=== PATIENT | female | born 1935 | race Caucasian/White ===

== ENCOUNTER → 2016-12-10 | Outpatient (CLI) | payer OTHER, MEDICARE ==
[~2016-12-10] MED LIST: CALCTAB5 PO; CHOL200010 PO; CLR10 PO; METO25TA3 PO; MULT-190 PO; TRIA1SPR4 NAE; WARF5TAB90 PO
[2016-12-10 10:07] LABS: BASO % 0.7 %; BASO ABS # 0.05 K/uL (0-0.2); COMPLETE YES; EOS % 1.7 %; HEMATOCRIT 44.4 % (37-47); IG% 0.1 %; LYMPH % 23.7 %; LYMPH ABS # 1.64 K/uL (1.2-3.4); MEAN CELL VOLUME 95.7 fL (80-100); MEAN CORPUSCULAR HEMOGLOBIN 30.6 pg (25-34); MEAN PLATELET VOLUME 9.8 fL (7.4-10.4); MONO % 10.9 %; NEUT % 62.9 %; PLATELET COUNT 280 K/uL (130-400); RED BLOOD COUNT 4.64 M/uL (4.2-5.4); WHITE BLOOD COUNT 6.91 K/uL (4.8-10.8)
[2016-12-10 10:25] LABS: ALT/SGPT 25 U/L (12-78); AST/SGOT 22 U/L (15-37); BLOOD UREA NITROGEN 16 mg/dl (7-18); BUN/CREATININE RATIO 20.4 (10-20); CALCIUM 9.8 mg/dl (8.5-10.1); CARBON DIOXIDE 29 mmol/L (21-32); CHLORIDE 108 mmol/L (98-107); CREATININE 0.78 mg/dl (0.60-1.20); GLUCOSE 81 mg/dl (70-99); POTASSIUM 4.5 mmol/L (3.5-5.1); SODIUM 140 mmol/L (136-145)
[2016-12-10 10:36] LABS: ALB/GLOB RATIO 0.9 (0.9-2); ALKALINE PHOSPHATASE 75 U/L (45-117); CHOLESTEROL 190 mg/dl (0-200); CHOLESTEROL/HDL RATIO 2.9; HDL CHOLESTEROL 66 mg/dl; LDL CHOLESTEROL CALCULATED 103 mg/dl; TRIGLYCERIDES 103 mg/dl (0-150); VERY LOW DENSITY LIPOPROT CALC 21 mg/dl
== END | disposition home or self-care (01) ==
LOC: C.LAB 09:35
PROVIDERS: ATTEND Internal Medicine Geriatric Medicine
DX: M81.0 Age-related osteoporosis without current pathological fracture (principal); I67.2 Cerebral atherosclerosis; Z79.01 Long term (current) use of anticoagulants; I48.0 Paroxysmal atrial fibrillation

== ENCOUNTER 2017-02-26 20:57 | Emergency (ER) | payer OTHER, MEDICARE ==
[~2017-02-26] VITALS: Ht 177.8 cm; Wt 86.2 kg
[2017-02-26 21:00] VITALS: BP 159/97; PULSE 78; TEMP 36.6; O2SAT 95; Ht 177.8 cm; Wt 86.2 kg
--- NOTE | 2017-02-26 22:01 | EMERGENCY ROOM VISIT NOTE ---
ED Visit Note First contact with patient: 21:16 I have seen and examined this patient with Jalyn Bernard and generally agree with the treatment plan as discussed. Problem List Medical Problems: (1) Atrial fibrillation with RVR Status: Resolved (2) Localized, primary osteoarthritis of the lower leg Status: Chronic Current/Historical Medications Scheduled Calcium (Caltrate), 500 MG PO DAILY Cholecalciferol (Vitamin D), 2,000 UNITS PO DAILY Metoprolol Succ (Toprol Xl) (Toprol-Xl), 25 MG PO DAILY Ocuvite Preservision (Ocuvite Preservision), 2 TAB PO DAILY Warfarin Sodium (Coumadin), 5 MG PO 5XWK Warfarin Sodium (Coumadin), 2.5 MG PO 2XWK Scheduled PRN Loratadine (Claritin), 10 MG PO DAILY PRN for seasonal allergies Triamcinolone Acetonide (Nasal (Nasacort Allergy 24Hr), 2 SPRAY ADRIANA DAILY PRN for Nasal Congestion Allergies Coded Allergies: Bacitracin (Verified Allergy, Unknown, RASH, 09/11/15) Neomycin (Verified Allergy, Unknown, RASH, 09/11/15) Polymyxin B (Verified Allergy, Unknown, RASH, 09/11/15) Vital Signs Date Time Temp Pulse Resp B/P (MAP) Pulse Ox O2 Delivery O2 Flow Rate FiO2 02/26/17 21:00 36.6 78 20 159/97 95 Room Air Departure Information Referrals John Paul Roberson M.D. (PCP) Patient Instructions My [facility]
--- NOTE | 2017-02-26 22:13 | EMERGENCY ROOM VISIT NOTE ---
ED Visit Note First contact with patient: 21:16 CHIEF COMPLAINT: right hip and right foot pain s/p fall HISTORY OF PRESENT ILLNESS: This 81-year-old female patient presents to the emergency department, ambulatory, with a friend, complaining of swelling and pain in the right foot and hip at rest and worse with weight bearing. The patient eats she was at a [employer] and was walking from the kitchen to the living room. The patient states she was on aware that there was a step down into the living room. She states she missed the step and fell on her right side. The patient now reports soreness in her right hip, but is complaining of more severe pain in her right lateral foot. The patient did have a recent fracture in September on the medial aspect of her foot. The patient does have a walking boot. She states the symptoms are actually better with standing, and she is able to ambulate. The patient does have full range of motion of the foot and hip, but states movement does make it worse. The patient rates the pain as throbbing and 6/10. The patient has not had relief of the pain. No numbness or weakness. No ankle pain. There are no lacerations of the foot. The patient is able to move all of their toes and their ankle, but moving the toes does cause pain in the 4th and 5th digits. REVIEW OF SYSTEMS: A 6 system review of systems was completed with positives and pertinent negatives in the HPI. ALLERGIES: Bacitracin MEDICATIONS: Metoprolol, vitamin D, Coumadin, Nasacort, calcium, Ocuvite, flecainide PMH: Irregular heartbeat, vitamin D deficiency, calcium deficiency SOCIAL HISTORY: The patient lives locally with family. She denies drug or tobacco use. The patient does admit to occasional alcohol use. PHYSICAL EXAM: Vital Signs: Reviewed Nurse's notes, vital signs stable. GENERAL : This is a 81-year-old female, in no acute distress, but appears in pain, well- developed, well-nourished. MUSCULOSKELATAL: There is no visual deformity of the right foot. There is no erythema or ecchymosis. There is no warmth. There is tenderness and swelling over the dorsal, lateral aspect of the right foot. There is no tenderness over the lateral or medial malleolus. No tenderness of the tib/fib. The range of motion of the right foot and toes is very mildly limited secondary to pain. There is no tenderness over the plantar fascia. The patient does have moderate tenderness on palpation of the right hip. There is no bruising or ecchymosis noted. There is no erythema. The patient does have full range of motion at the hip, however this does worsen her pain. The patient 's tenderness is worsened with weightbearing. The skin is intact and there are no lacerations or puncture wounds. Dorsalis pedis pulse 2+. Capillary refill less than 2 seconds. RADIOLOGY: X-Ray Right Hip: RIGHT HIP 2 VIEWS HISTORY: right hip pain s/p fall COMPARISON: None. FINDINGS: There is no fracture or dislocation. Soft tissues are unremarkable. No radiopaque foreign bodies. IMPRESSION: No fractures. X-Ray Right Foot: RIGHT FOOT 3 VIEWS HISTORY: right lateral foot pain s/p fall COMPARISON: None. FINDINGS: There is no fracture or dislocation. Soft tissues are unremarkable. No radiopaque foreign bodies. Small plantar and posterior calcaneal spurs. The Lisfranc joint is intact. IMPRESSION: No fractures. EMERGENCY DEPARTMENT COURSE: I examined the patient. An X-ray of the right foot and right hip were reviewed by myself, Dr. Logan, and radiologist and reveals no acute fracture. The patient was advised to use her walking boot and crutches which she has at home. The patient was seen and evaluated independently with Dr. Logan who is in agreement with the assessment and plan. The patient was encouraged to follow-up with Dr. Merino due to her injuries and recent fracture. The patient was discharged home in good condition. Blood Pressure Screening: Patient was found to have a slightly elevated blood pressure due to circumstances. I do not believe that the patient requires hypertension monitoring. I attest that I have personally reviewed the patient's current medication list. DIFFERENTIAL DIAGNOSIS: Contusions, foot fracture, hip fracture, hip dislocation , and others DIAGNOSIS: right foot contusion, right hip contusion. TREATMENT: ORTHOPEDIC INSTRUCTIONS: Acetaminophen(Tylenol) may be used for fever or pain. Use 1000mg every six hours as needed. Avoid using more than 3000mg in a 24 hour period. Ice compresses for 20 minutes at a time four times daily for 2-3 days. Use the crutches or walker you have at home as instructed to help with weight- bearing until it is comfortable. Rest and elevate your injury. Wear your walking boot to help with ambulation until you see Dr. Merino. Return to the ER immediately for any numbness, tingling, severe pain, extreme swelling in the extremity or as needed. Call [facility], [phone], on Tuesday to arrange follow up for your injury. Follow-up with your primary care physician in 2 to 3 days for a recheck of your current condition. Problem List Medical Problems: (1) Atrial fibrillation with RVR Status: Resolved (2) Localized, primary osteoarthritis of the lower leg Status: Chronic Current/Historical Medications Scheduled Calcium (Caltrate), 500 MG PO DAILY Cholecalciferol (Vitamin D), 2,000 UNITS PO DAILY Metoprolol Succ (Toprol Xl) (Toprol-Xl), 25 MG PO DAILY Ocuvite Preservision (Ocuvite Preservision), 2 TAB PO DAILY Warfarin Sodium (Coumadin), 5 MG PO 5XWK Warfarin Sodium (Coumadin), 2.5 MG PO 2XWK Scheduled PRN Loratadine (Claritin), 10 MG PO DAILY PRN for seasonal allergies Triamcinolone Acetonide (Nasal (Nasacort Allergy 24Hr), 2 SPRAY ADRIANA DAILY PRN for Nasal Congestion Allergies Coded Allergies: Bacitracin (Verified Allergy, Unknown, RASH, 09/11/15) Neomycin (Verified Allergy, Unknown, RASH, 09/11/15) Polymyxin B (Verified Allergy, Unknown, RASH, 09/11/15) Vital Signs Date Time Temp Pulse Resp B/P (MAP) Pulse Ox O2 Delivery O2 Flow Rate FiO2 02/26/17 21:00 36.6 78 20 159/97 95 Room Air Departure Information Impression Primary Impression: Contusion of foot Additional Impression: Contusion of hip Dispostion Home / Self-Care Condition GOOD Referrals John Paul Roberson M.D. (PCP) Ruben Merino M.D. Patient Instructions ED Contusion Foot, ED Contusion Hip, My [facility] Additional Instructions ORTHOPEDIC INSTRUCTIONS: Acetaminophen(Tylenol) may be used for fever or pain. Use 1000mg every six hours as needed. Avoid using more than 3000mg in a 24 hour period. Ice compresses for 20 minutes at a time four times daily for 2-3 days. Use the crutches or walker you have at home as instructed to help with weight- bearing until it is comfortable. Rest and elevate your injury. Wear your walking boot to help with ambulation until you see Dr. Merino. Return to the ER immediately for any numbness, tingling, severe pain, extreme swelling in the extremity or as needed. Call [facility], [phone], on Tuesday to arrange follow up for your injury. Follow-up with your primary care physician in 2 to 3 days for a recheck of your current condition. Problem Qualifiers Primary Impression: Contusion of foot Encounter type: initial encounter Laterality: right Qualified Codes: S90.31XA - Contusion of right foot, initial encounter Additional Impression: Contusion of hip Encounter type: initial encounter Laterality: right Qualified Codes: S70.01XA - Contusion of right hip, initial encounter
--- NOTE | 2017-02-26 22:16 | DIAGNOSTIC IMAGING REPORT ---
RIGHT HIP 2 VIEWS HISTORY: right hip pain s/p fall COMPARISON: None. FINDINGS: There is no fracture or dislocation. Soft tissues are unremarkable. No radiopaque foreign bodies. IMPRESSION: No fractures. Electronically signed by: Erick Alarcon M.D. 02/26/2017 10:15 PM Dictated Date/Time: 02/26/2017 10:11 PM
--- NOTE | 2017-02-26 22:20 | DIAGNOSTIC IMAGING REPORT ---
RIGHT FOOT 3 VIEWS HISTORY: right lateral foot pain s/p fall COMPARISON: None. FINDINGS: There is no fracture or dislocation. Soft tissues are unremarkable. No radiopaque foreign bodies. Small plantar and posterior calcaneal spurs. The Lisfranc joint is intact. IMPRESSION: No fractures. Electronically signed by: Erick Alarcon M.D. 02/26/2017 10:19 PM Dictated Date/Time: 02/26/2017 10:15 PM
== END 2017-02-26 22:24 | disposition home or self-care (01) ==
LOC: C.EDB 20:58 → C.EDD 22:24
DX: S90.31XA Contusion of right foot, initial encounter (principal); S70.01XA Contusion of right hip, initial encounter; W10.9XXA Fall (on) (from) unspecified stairs and steps, initial encounter; Z79.01 Long term (current) use of anticoagulants; Z79.899 Other long term (current) drug therapy; E55.9 Vitamin D deficiency, unspecified; E58 Dietary calcium deficiency; I48.91 Unspecified atrial fibrillation; M17.10 Unilateral primary osteoarthritis, unspecified knee

== ENCOUNTER → 2017-06-29 | Outpatient (CLI) | payer OTHER, MEDICARE ==
[~2017-06-29] MED LIST changes: +PRED1SUS17 OP
--- NOTE | 2017-06-29 15:40 | MAMMOGRAPHY REPORT ---
BILATERAL DIGITAL SCREENING MAMMOGRAM TOMOSYNTHESIS WITH CAD: 06/29/2017 CLINICAL HISTORY: Routine screening. TECHNIQUE: Breast tomosynthesis in addition to standard 2D mammography was performed. Current study was also evaluated with a Computer Aided Detection (CAD) system. COMPARISON: Comparison is made to exams dated: 05/24/2016 ultrasound, 04/27/2016 mammogram, 04/23/20 15 mammogram, 04/17/2014 mammogram, 04/11/2013 mammogram, and 04/10/2012 mammogram - [facility]. BREAST COMPOSITION: The tissue of both breasts is heterogeneously dense, which may obscure small mas ses. FINDINGS: There are fluctuating circumscribed masses scattered in both breasts. The dominant circums cribed reniform shaped mass in the 3:00 to 4:00 left breast measures 2.7 cm and is slightly smaller c omparing to last year's mammograms, confirming benignity. An asymmetry in the lateral right breast o n the CC view appears similar on all available prior mammograms dating back to at least 2007, therefo re likely benign. There are also diffuse bilateral breast microcalcifications, similar to prior mamm ograms. No new suspicious mass, architectural distortion or cluster of new, suspicious microcalcific ations is seen. IMPRESSION: ACR BI-RADS CATEGORY 1: NEGATIVE There is no mammographic evidence of malignancy. A 1 year screening mammogram is recommended. The pa tient will receive written notification of the results. Approximately 10% of breast cancers are not detected with mammography. A negative mammographic report should not delay biopsy if a clinically suggestive mass is present. Pily Marroquin M.D. ay/:06/29/2017 12:54:26 Special Investigation Unit Investigator: Billie FAUST(Kaden)(Janae), [facility] letter sent: Normal 1/2 BI-RADS Code: ACR BI-RADS Category 1: Negative
== END | disposition home or self-care (01) ==
LOC: C.MAMM 11:22
PROVIDERS: ATTEND Internal Medicine Geriatric Medicine
DX: Z12.31 Encounter for screening mammogram for malignant neoplasm of breast (principal)

== ENCOUNTER → 2018-01-09 | Outpatient (CLI) | payer OTHER, MEDICARE ==
[2018-01-09 12:53] LABS: BASO % 0.6 %; BASO ABS # 0.04 K/uL (0-0.2); EOS % 2.3 %; EOS ABS # 0.16 K/uL (0-0.5); HEMATOCRIT 42.9 % (37-47); HEMOGLOBIN 13.6 g/dL (12.0-16.0); IG# 0.02 K/uL (0.00-0.02); LYMPH % 25.4 %; LYMPH ABS # 1.74 K/uL (1.2-3.4); MEAN CELL VOLUME 96.6 fL (80-100); MEAN CORPUSCULAR HEMOGLOBIN 30.6 pg (25-34); MEAN CORPUSCULAR HGB CONC 31.7 g/dl (32-36); MEAN PLATELET VOLUME 10.8 fL (7.4-10.4); MONO % 9.5 %; MONO ABS # 0.65 K/uL (0.11-0.59); NEUT % 61.9 %; NEUT ABS # 4.24 K/uL (1.4-6.5); PLATELET COUNT 282 K/uL (130-400); RED CELL DISTRIBUTION WIDTH CV 13.7 % (11.5-14.5); RED CELL DISTRIBUTION WIDTH SD 48.8 fL (36.4-46.3); WHITE BLOOD COUNT 6.85 K/uL (4.8-10.8)
[2018-01-09 13:40] LABS: ALBUMIN 3.5 gm/dl (3.4-5.0); ALKALINE PHOSPHATASE 83 U/L (45-117); ALT/SGPT 25 U/L (12-78); AST/SGOT 23 U/L (15-37); BLOOD UREA NITROGEN 19 mg/dl (7-18); CALCIUM 9.1 mg/dl (8.5-10.1); CARBON DIOXIDE 27 mmol/L (21-32); CHOLESTEROL 194 mg/dl (0-200); CREATININE 0.77 mg/dl (0.60-1.20); GLUCOSE 89 mg/dl (70-99); LDL CHOLESTEROL CALCULATED 109 mg/dl; POTASSIUM 4.4 mmol/L (3.5-5.1); SODIUM 139 mmol/L (136-145); TOTAL PROTEIN 7.2 gm/dl (6.4-8.2)
== END | disposition home or self-care (01) ==
LOC: C.LABBC 11:31
PROVIDERS: ATTEND Internal Medicine Geriatric Medicine
DX: M17.10 Unilateral primary osteoarthritis, unspecified knee (principal); M81.0 Age-related osteoporosis without current pathological fracture; Z86.39 Personal history of other endocrine, nutritional and metabolic disease; Z79.01 Long term (current) use of anticoagulants; I48.0 Paroxysmal atrial fibrillation; H20.029 Recurrent acute iridocyclitis, unspecified eye; J30.9 Allergic rhinitis, unspecified

== ENCOUNTER 2023-03-11 08:06 | Inpatient (IN) ==
[2023-03-11 08:38] LABS: Basophils # (auto) 0.05 K/uL (0.00-0.20); Basophils % (auto) 0.7 %; Eosinophils # (auto) 0.45 K/uL (0.00-0.50); Eosinophils % (auto) 6.7 %; Hematocrit (blood only) 43.7 % (37.0-47.0); Hemoglobin 14.4 g/dl (12.0-16.0); Immature Granulocytes # (auto) 0.02 K/uL (0.01-0.20); Immature Granulocytes % (auto) 0.3 %; Lymphocytes # (auto) 1.69 K/uL (1.20-3.40); Lymphocytes % (auto) 25.1 %; Mean Corpuscular Hemoglobin 31.4 pg (25.0-34.0); Mean Corpuscular Volume 95.2 fL (80.0-100.0); Mean Platelet Volume 9.8 fL (9.4-12.4); Monocytes % (auto) 10.4 %; Neutrophils # (auto) 3.82 K/uL (1.40-6.50); Neutrophils % (auto) 56.8 %; Platelet Count 308 K/uL (130-400); RDW Coefficient of Variation 13.3 % (11.5-14.5); RDW Standard Deviation 46.6 fL (36.4-46.3); Red Blood Count 4.59 M/uL (4.20-5.40); White Blood Count 6.73 K/ul (4.8-10.8)
--- NOTE | 2023-03-11 08:51 | XRay Report ---
SINGLE VIEW CHEST CLINICAL HISTORY: Atypical chest pain. FINDINGS: An AP, portable, upright chest radiograph is compared to study dated 12/15/2014. The examina tion is degraded by portable technique and patient rotation. The heart is enlarged noting atheroscle rotic calcification of the thoracic aorta. The pulmonary vasculature is noncongested. Chronic interst itial thickening similar to previous. There is a moderate left apical pneumothorax with approximately 4 cm of pleural separation. The trachea is midline. There is elevation of the left hemidiaphragm and a small left pleural effusion. Consolidation is seen at the left lung base. The skeletal structures are osteopenic. There are acute appearing left-sided rib fractures. IMPRESSION: 1. There are acute appearing left-sided rib fractures 2. Moderate left apical pneumothorax. 3. Small left pleural effusion with left basilar consolidation. 4. Cardiomegaly without radiographic evidence of congestive failure. ACT 112: Negative or not required by law. Electronically signed by: Jacob White M.D. 03/11/2023 8:49 AM
[2023-03-11 09:02] LABS: Alanine Aminotransferase 27 U/L (7-52); Albumin Globulin Ratio 1.3 (0.9-2); Albumin Level 3.8 gm/dl (3.4-5.0); Alkaline Phosphatase 105 U/L (34-104); Anion Gap 5 (3-11); Aspartate Aminotransferase 31 U/L (13-39); BUN Creatinine Ratio 26.2 (10-20); Bilirubin,Total 0.5 mg/dl (0.2-1.0); Blood Urea Nitrogen 16 mg/dl (6-23); Calcium 9.7 mg/dl (8.6-10.3); Carbon Dioxide 26 mmol/L (21-32); Chloride 108 mmol/L (98-107); Est GFR (African American) 95.8 ml/min; Est GFR (Non-African American) 82.7 ml/min; Glucose 99 mg/dl (70-99(Fasting)); Lipase 36 U/L (11-82); Potassium 4.1 mmol/L (3.5-5.1); Sodium 139 mmol/L (136-145); Total Protein 6.8 gm/dl (6.0-8.3)
[2023-03-11 09:06] LABS: Troponin I High Sensitivity 4.8 pg/ml (0-14)
[2023-03-11] MEDS ORDERED: OPTIRAY 320 125ml IV ONE (09:23)
--- NOTE | 2023-03-11 09:47 | CT Scan Report ---
CT head/brain wo con CLINICAL HISTORY: fall Technique: Contiguous axial CT images of the head were acquired from the base of the skull to the kurt angeli without intravenous contrast administration. Images were viewed in brain, subdural and [facility] . Automated dose lowering techniques and/or adjustment according to patient size were utilized for this exam. Comparison: Comparison is made to CT head 10/29/2021 Findings: Areas of decreased attenuation are present in the periventricular and subcortical white matter bilate rally consistent with small vessel ischemic disease. Generalized cerebral atrophy with commensurate e nlargement of the ventricles, sulci, and cisterns is also present. There is no acute intracranial hem orrhage or evidence of acute territorial infarction. No shift of the midline structures, mass effect, or extra-axial abnormalities are shown. Atherosclerotic calcifications are present in the intracran ial segments of the internal carotid arteries. 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 Imaged portions of the paranasal sinuses and mastoid air cells are clear. The orbits appear normal. There are no acute fractures of the calvaria or scalp swelling. Impression: No acute intracranial hemorrhage, no evidence of acute territorial infarction or other acute intracra nial disease process. ACT 112: Negative or not required by law. Electronically signed by: Jason Merrill M.D. 03/11/2023 9:46 AM
--- NOTE | 2023-03-11 09:50 | CT Scan Report ---
CT ANGIOGRAM OF THE CHEST CLINICAL HISTORY: Atypical chest pain. Recent travel. Fall. COMPARISON STUDY: Chest x-ray dated 03/11/2023. TECHNIQUE: Following the IV administration of 120 cc of Optiray 320, CT angiogram of the chest was pe rformed from the upper abdomen to the thoracic inlet utilizing the pulmonary embolus protocol. Images are reviewed in the axial, sagittal, and coronal planes. 3-D MIPS images are created and assessed. I V contrast was administered without complication. A dose lowering technique was utilized adhering to the principles of ALARA. CT DOSE: 1348.18 mGy.cm FINDINGS: Thyroid: Imaged portions of the thyroid gland are normal in size and attenuation. Thoracic aorta: The thoracic aorta is normal in caliber and demonstrates standard 3-vessel arch anato my. No dissection is seen. Pulmonary vasculature: The pulmonary trunk is dilated, measuring 3.2 cm in diameter. This suggests pu lmonary artery hypertension. There are no filling defects identified in main, lobar, or proximal segm ental pulmonary branches to suggest pulmonary embolus. Evaluation of the peripheral branches is degra ded by motion artifact. Heart: The heart is enlarged and without pericardial effusion. The coronary arteries are densely calc ified. Lungs and pleural spaces: Evaluation of the lung parenchyma is degraded by motion artifact. There is a moderate to large left pneumothorax which extends anteriorly from the apex to the base. There is a moderate left pleural effusion. Segmental atelectasis is seen in the left upper lobe/lingula. There i s dependent atelectasis at the left lung base. The trachea is midline, and the trachea/central airway s appear clear. Clustered nodular airspace opacities are seen in the right upper lobe on image #138 a nd in the right lower lobe on image #112. A 3 mm right middle lobe nodule is seen on image #112 and a 4 mm right middle lobe nodule is seen on image #67. Mediastinum: There is no mediastinal lymphadenopathy. Teresita: Clear. Axillae: There is no axillary lymphadenopathy. Upper abdomen: There is a small hiatal hernia. The gallbladder is distended. Nonobstructing left carroll l calculi measuring up to 5 mm. Skeletal structures: The skeletal structures are osteopenic. Degenerative change and hyperkyphosis is noted in the spine. No lytic or blastic bony lesions are seen. There are acute to subacute and mildl y displaced fractures of the left posterolateral 4th through 6th ribs. There are also acute to subacu te nondisplaced fractures of the left posterior 4th and 5th ribs. IMPRESSION: 1. Acute to subacute left-sided rib fractures as above. Note that 2 ribs are fractured at 2 sites. 2. Moderate to large left hydropneumothorax. 3. The trachea is midline. 4. Cardiomegaly. 5. There is no evidence of central pole embolus in the main, lobar, or proximal segmental pulmonary a rteries. Evaluation of the peripheral branches is compromised by motion artifact. 6. Segmental atelectasis is seen in the left upper lobe/lingula. 7. Foci of clustered nodularity are seen in the right lung. These may be inflammatory. A 3-4 month fo llow-up chest CT is recommended for reassessment. 8. Left-sided nephrolithiasis. 9. Additional findings as above. ACT 112: Positive. There are findings on this exam that require communication between the performing entity and the patient following Patient Test Result Information Act ([place] Act 112) guidelines. Electronically signed by: Jacob White M.D. 03/11/2023 9:48 AM
--- NOTE | 2023-03-11 09:50 | Pulmonary Consultation ---
Date of Consultation March 11, 2023 Assessment & Plan (1) Hydropneumothorax: (2) Left rib fracture: (3) Paroxysmal A-fib: (4) Abnormal chest CT: Plan CT chest 03/11/2023 personally reviewed: Left-sided moderate pneumothorax with fluid effusion atelectasis of the inferior lobe of the lingula Cardiomegaly No significant mediastinal lymphadenopathy -- Left hydropneumothorax Likely secondary to the fall and multiple rib fractures on the left side --Multiple left-sided rib fractures Pain management --A-fib On apixaban Plan: Given the moderate to large left-sided hydropneumothorax, pigtail catheter will need to be placed Risk and benefit of the procedure were explained to the patient in depth. She understands and agrees to go to the procedure Consent was signed, witnessed and put in the chart Please note the above document was generated using voice recognition software. It may contain grammatical, syntax or spelling errors.Any formal questions or concerns about the content, text or information contained within the body of this dictation should be directly addressed to the provider for clarification. History of Present Illness History of Present Illness 89-year-old female present to the hospital for left-sided back pain and chest tightness Past medical history: A-fib on Eliquis, hypertension Pulmonary consulted for left-sided hydropneumothorax At the time of examination patient's blood pressure systolic was in the 150s, she was saturating 97% on room air. She was not in any respiratory distress Did complain of pain on the left side. She recently traveled to [place]. She had a fall on the second day of her trip there. She went to the ER over there once where it seemed everything was okay. The reason she came to the hospital today was left-sided chest tightness and back pain when she woke up When it comes to her breathing she says she is not short of breath. Does complain of pain on the left side when she takes deep breath Denies any nausea vomiting No headache, no blurry vision No fever or chills Social history: Lifetime non-smoker No personal or family history of asthma No personal history of any cancer No history of lung cancer in the family Allergies Allergy/AdvReac Type Severity Reaction Status Date / Time bacitracin Allergy Unknown RASH Verified 03/07/23 11:01 neomycin Allergy Unknown RASH Verified 03/07/23 11:01 polymyxin B Allergy Unknown RASH Verified 03/07/23 11:01 Home Medications Medication Instructions Recorded Confirmed Type calcium carbonate 500 mg-vitamin 1 tab PO DAILY 09/18/18 03/11/23 History D3 10 mcg (400 unit) tablet (Calcium 500 With D) cholecalciferol (vitamin D3) 25 1,000 units PO DAILY 09/18/18 03/11/23 History mcg (1,000 unit) capsule timolol 0.25 % eye drops 1 drp ophthalmic (eye) BID 02/25/21 03/11/23 History vit C 250 mg-vit E 90 mg-zinc 40 2 cap PO DAILY 02/25/21 03/11/23 History mg-copper 1 [id number] capsule (PreserVision AREDS-2) vitamin B complex (B See Rx Instructions .Route .COMPLEX 09/14/21 03/11/23 History Complex-Vitamin B12 tablet) flecainide 50 mg tablet 50 mg PO BID #180 tabs 03/10/22 03/11/23 Rx apixaban 5 mg tablet (Eliquis) 5 mg PO BID #180 tabs 12/13/22 03/11/23 Rx metoprolol succinate 25 mg 25 mg PO DAILY #90 tabs 12/27/22 03/11/23 Rx tablet,extended release 24 hr (Toprol XL) cyclobenzaprine 5 mg tablet 5 mg PO .QHS PRN muscle spasm #10 03/07/23 03/11/23 Rx tabs fluticasone propionate 50 2 spray intranasal DAILY PRN 03/11/23 03/11/23 History mcg/actuation nasal Allergy Symptoms spray,suspension Patient History Medical History Atrial fibrillation with rapid ventricular response Atrial fibrillation with RVR Carotid artery plaque Cerebral atherosclerosis Chronic anticoagulation Osteoarthritis of knee Osteoporosis SI (sacroiliac) joint inflammation Third degree uterine prolapse Surgical History H/O arthroscopy of knee H/O colonoscopy H/O oral surgery History of cataract surgery Family History Mother Cancer Dementia Squamous cell skin cancer, earlobe Brother Glaucoma Transient ischemic attack Adenocarcinoma of prostate Brother Glaucoma Retinal detachment Optic neuritis H/O hernia repair History of knee replacement Colon cancer Abdominal aortic aneurysm Hypertension Denies family history of Ovarian cancer Prostate cancer Myocardial infarction Breast cancer Social History Smoking Status: Former smoker Second Hand Exposure: No; Do You Dip or Chew Tobacco: No; Hx Alcohol Use: Yes (1-3 WEEKLY) Alcohol type: wine Hx Substance Use: No Preferred Language: Swiss Communication Ability: Effective Visual Impairment: No Limitations Hearing Ability: Normal marital status: / current occupational status: retired current occupation: [employer] Feels Safe at Home: Yes Childhood Exposure to Second-Hand Smoke: Yes Dental Care, Regularly: Yes Physical Activity Frequency: 5-6 Times per Week Seatbelt Use: always Sunscreen Use: Yes Review of Systems Review of Systems: All systems reviewed & are unremarkable except as noted in HPI & below Physical Exam Physical Exam: Constitutional: No acute distress HEENT: EOMI, PERRLA Respiratory system: Decreased air entry on the left side, no wheeze, rhonchi, positive crackles CVS: S1-S2 positive, no murmurs or gallops Abdomen: Soft, nontender, nondistended, positive bowel sounds x4 Extremities: +2 pulses bilaterally radialis/ dorsalis pedis, no cyanosis, +1 edema bilateral lower extremity Neuro: Awake alert oriented x3 Psych: Normal mood and affect G/U: No Fenton Skin: no rashes, warm and dry Lymphatic: no cervical or axillary lymphadenopathy Results & Data Results & Data Vital Signs (Past 12 Hours) Vital Signs Temp Pulse Pulse Resp BP BP Pulse Ox 03/11/23 09:44 66 18 134/84 96 03/11/23 08:15 77 03/11/23 08:16 77 16 96 03/11/23 08:10 18 96 03/11/23 08:10 03/11/23 07:58 36.6 C 74 16 146/98 H 95 O2 Del Method 03/11/23 09:44 03/11/23 08:15 03/11/23 08:16 03/11/23 08:10 03/11/23 08:10 Room Air 03/11/23 07:58 Room Air Laboratory Results 03/11/23 08:18 03/11/23 08:18 PG Care Time/CCT Total # of Minutes Spent Total Time Spent with Patient: Total time spent is greater than 50% in coordination of care (as documented) at patient's floor/unit and/or counseling patient: Coding Level of Care Code 55245 INT INP/OBS CARE 3/75MIN Diagnoses Hydropneumothorax J94.8 Left rib fracture S22.32XA Paroxysmal A-fib I48.[address] R93.89
--- NOTE | 2023-03-11 09:52 | Procedure Note ---
Procedure Note Date of Service March 11, 2023 Note Procedure: Left-sided pigtail chest tube insertion Income Tax Investigator: Dr. Bennett Sandoval Indication: Left-sided hydropneumothorax Consent: Signed by patient and verified with timeout prior to procedure Anesthesia: 1% lidocaine without epinephrine local Procedure: Consent was verified and timeout performed. Appropriate imaging studies were reviewed prior to the procedure. Patient was placed in a seated position. Appropriate site above the diaphragm on the left posterior axillary line fourth intercostal space for chest tube insertion was selected. The skin was prepped and draped in normal sterile fashion. Lidocaine was used for local analgesia. Serosanguineous was aspirated via the finder needle. A small skin azeb was made with the scalpel and the catheter over the needle apparatus was advanced over the rib into the pleural space. With the help of guidewire and Seldinger technique, 14 Amharic pigtail catheter was inserted and connected to Pleur-evac. 600 mL was drained and chest tube was connected to -20 suction continuous. Chest x-ray to follow Fluid was sent for labs, culture and cytology. The patient tolerated the procedure without obvious complication Complications: None Blood loss: Less than 2 cc. Bedside ultrasound: Lung:- Right: No right-sided pleural effusion, a lines anteriorly and posteriorly Left:-Moderate left-sided pleural effusion with atelectasis of the left lower lobe Please note the above document was generated using voice recognition software. It may contain grammatical, syntax or spelling errors.Any formal questions or concerns about the content, text or information contained within the body of this dictation should be directly addressed to the provider for clarification. Coding CPT Codes Pulmonary/Thoracic - Pulmonary and Thoracic: 31515 Tube thoracostomy ([id number]) Pulmonary/Thoracic - Pulmonary and Thoracic: 71337 Pleural drainage w/o imaging ([id number]) Pulmonary/Thoracic - Pulmonary and Thoracic: 14998 US, Chest, real time with imaging documentation ([id number]) [facility] Procedure Codes (Charges) Pulmonary/Thoracic Procedure 1: Pulmonary and Thoracic: 32920 Tube thoracostomy Procedure 2: Pulmonary and Thoracic: 12679 Pleural drainage w/o imaging Procedure 3: Pulmonary and Thoracic: 39609 US, Chest, real time with imaging documentation
[2023-03-11] MEDS ORDERED: LIDOCAINE 1% LOCAL 20 ML VIAL ONE (10:17)
--- NOTE | 2023-03-11 11:25 | XRay Report ---
XR chest 1V portable HISTORY: 87 years-old Female S/P Thoracentesis follow-up study in a patient with left pleural effusi on COMPARISON: 03/11/2023 TECHNIQUE: AP view of the chest FINDINGS: Left-sided pleural catheter has been placed projected over the left lung base. Pulmonary vascular con gestion. There is decreased size left pleural effusion. Trace left pleural effusion with mild bibasil ar atelectasis. Trace right pleural effusion. Left-sided pneumothorax redemonstrated with pleural sep aration measuring up to 2.4 cm at the left lung apex. Bones appear grossly intact. Cardiomegaly. IMPRESSION: 1. Status post placement of a left basilar pigtail pleural drainage catheter with decreased size of t he left pleural effusion. 2. Stable left-sided pneumothorax. 3. Trace pleural effusions with mild bibasilar atelectasis. 4. Cardiomegaly with pulmonary vascular congestion. ACT 112: Negative or not required by law. The above report was generated using voice recognition software. It may contain grammatical, syntax o r spelling errors. Electronically signed by: Rod Simpson M.D. 03/11/2023 11:24 AM
--- NOTE | 2023-03-11 11:46 | History & Physical Report ---
Date of Service March 11, 2023 Assessment & Plan (1) Hemopneumothorax, left: Plan: -Admit to med/tele on continuous pulse oximetry -Currently hemodynamically stable and stable on RA -Came to the ED for acute, left-sided chest pain which woke her up from sleep this am -CTA of the chest showed left apical pneumothorax and left hydropneumothorax, as-well-as acute to subacute and mildly displaced fractures of the left posterolateral 4th through 6th ribs and nondisplaced fractures of the left posterior 4th and 5th ribs -Pulmonology was consulted and has placed a left-sided chest tube; repeat chest xray shows improving left effusion and stable left pneumothorax -Chest tube is currently set to 20 mmhg with approximately 500 cc of bloody drainage -Will give patient a dose of codeine cough syrup now as she is in pain and coughing, if it helps her cough will scheduled -Will give 1000 mg PO Acetaminophen now -Will start prn IV morphine for severe pain and tylenol for mild pain/fever -Q1H incentive spirometry -Hold Eliquis and chemical DVT PPX for now; BL WENDY's for DVT PPX for now -DMII diet -AM CBC, CMP, mag, PT/INR (2) Left rib fracture: Plan: -Sustained during her fall in [place] -Continue to monitor for new or worsening pain/SOB -Pain control per Hemopneumothorax plan (3) Hypertension: Plan: -Stable -Conitnue to monitor (4) Paroxysmal A-fib: Plan: -Currently in NSR -Will give am doses of Flecainide and metoprolol on admission -Continue flecanide and metoprolol -Hold eliquis for now, Pulmonology is in agreement Plan The patient was discussed with Dr. Montoya at the time of the admisison History of Present Illness Chief Complaint: Fall on Eliquis, left sided chest pain Primary Care Provider: Musa Guthrie MD Stella is an 87 year old female with a PMH significant for Paroxysmal afib on Eliquis, glaucoma, and cerebral atherosclerosis who presented to the [facility] ED on 03/11 with complaints of left chest pain this am. The patient recent traveled to [place] last month and sustained a fall while going on a walking tour. She was evaluated at a local hospital in [place] and was told she did not have fractures or that she had any problems with her heart. She was given an Palestinian equivalent of Ibuprofen for pain. In the ED today she remained stable. Labs including CBC, CMP, and high sen trop were unremarkable. CT of the head was negative. Chest xray showed left sided rib fractures with moderate left apical pneumothorax and left pleural effusion. CTA of the chest was read as ". Acute to subacute left- sided rib fractures as above. Note that 2 ribs are fractured at 2 sites. Moderate to large left hydropneumothorax. Foci of clustered nodularity are seen in the right lung. These may be inflammatory. A 3-4 month follow-up chest CT is recommended for reassessment.". Pulmonology was consulted and placed a left- sided chest tube. Prior to admission the patient was given no medications. At the time of the exam the patient was sitting in bed in no acute distress. She is currently stable on RA and has pain at the chest tube insertion site with deep inspiration. She confirms her recent travel and trauma. She woke up this am with increased left-sided chest pain, prompting her to come to the ED. She felt herself in afib upon waking and took a dose of her Flecainide prior to arrival; otherwise she did not have any of her other medications today. Her last dose of Eliquis was last night. She has no other complaints besides the left sided chest pain. She is a full code and her children are her POA. Please refer to Dr. Montoya's attestation for any changes to the treatment plan Allergies Allergy/AdvReac Type Severity Reaction Status Date / Time bacitracin Allergy Unknown RASH Verified 03/07/23 11:01 neomycin Allergy Unknown RASH Verified 03/07/23 11:01 polymyxin B Allergy Unknown RASH Verified 03/07/23 11:01 Home Medications Medication Instructions Recorded Confirmed Type calcium carbonate 500 mg-vitamin 1 tab PO DAILY 09/18/18 03/11/23 History D3 10 mcg (400 unit) tablet (Calcium 500 With D) cholecalciferol (vitamin D3) 25 1,000 units PO DAILY 09/18/18 03/11/23 History mcg (1,000 unit) capsule timolol 0.25 % eye drops 1 drp ophthalmic (eye) BID 02/25/21 03/11/23 History vit C 250 mg-vit E 90 mg-zinc 40 2 cap PO DAILY 02/25/21 03/11/23 History mg-copper 1 [id number] capsule (PreserVision AREDS-2) vitamin B complex (B See Rx Instructions .Route .COMPLEX 09/14/21 03/11/23 H istory Complex-Vitamin B12 tablet) flecainide 50 mg tablet 50 mg PO BID #180 tabs 03/10/22 03/11/23 Rx apixaban 5 mg tablet (Eliquis) 5 mg PO BID #180 tabs 12/13/22 03/11/23 Rx metoprolol succinate 25 mg 25 mg PO DAILY #90 tabs 12/27/22 03/11/23 Rx tablet,extended release 24 hr (Toprol XL) cyclobenzaprine 5 mg tablet 5 mg PO .QHS PRN muscle spasm #10 03/07/23 03/11/23 Rx tabs fluticasone propionate 50 2 spray intranasal DAILY PRN 03/11/23 03/11/23 History mcg/actuation nasal Allergy Symptoms spray,suspension Past Med/Surg History Medical History Atrial fibrillation with rapid ventricular response Atrial fibrillation with RVR Carotid artery plaque Cerebral atherosclerosis Chronic anticoagulation Osteoarthritis of knee Osteoporosis SI (sacroiliac) joint inflammation Third degree uterine prolapse Surgical History H/O arthroscopy of knee H/O colonoscopy H/O oral surgery History of cataract surgery Family History Mother Cancer Dementia Squamous cell skin cancer, earlobe Brother Glaucoma Transient ischemic attack Adenocarcinoma of prostate Brother Glaucoma Retinal detachment Optic neuritis H/O hernia repair History of knee replacement Colon cancer Abdominal aortic aneurysm Hypertension Denies family history of Ovarian cancer Prostate cancer Myocardial infarction Breast cancer Social History Smoking Status: Never smoker Second Hand Exposure: No; Do You Dip or Chew Tobacco: No; Tobacco Cessation Education Requested by Patient: No Hx Alcohol Use: Yes Alcohol type: beer, wine and hard liquor Hx Substance Use: No Preferred Language: Portuguese Communication Ability: Effective Visual Impairment: No Limitations Hearing Ability: Normal Taxi Dancer Required: No Beliefs That Will Affect Care: None marital status: / Current Living Situation: Alone current occupational status: retired current occupation: [employer] Other Information That Helps Us Care for You: No Feels Safe at Home: Yes Safety Concerns: Feels Safe At This Time Childhood Exposure to Second-Hand Smoke: Yes Dental Care, Regularly: Yes Physical Activity Frequency: 5-6 Times per Week Seatbelt Use: always Sunscreen Use: Yes Assistive Devices: Glasses Physical Exam Physical Exam: Physical Exam: General: In no acute distress, stated age, well-nourished, good hygiene, non- toxic appearing HEENT: Normocephalic, atraumatic, no scleral icterus, pupils around round, symmetrical, and reactive to light, moist mucus membranes, trachea midline, no thyromegaly Chest/Pulm: Chest tube is currently in place in the left chest without signs of leaking or drainage at the insertion site, currently set to 20 mmhg H20 and with approximately 500 cc bloody drainage; No respiratory distress, symmetrical chest expansion, rhonchi noted in the left lower and middle lung, decreased breathing sounds in the left upper lung, otherwise CTA Cardiac: RRR, no murmurs noted Abdomen: Negative for ascites and bruising, normoactive bowel sounds, soft, non-tender to palpation throughout Musculoskeletal: Pain to palpation over the left chest, otherwise no trauma noted Extremities: Radial, dorsalis pedis, and posterior tibial pulses are intact and symmetrical, no edema noted in the BL LE's Skin: Warm, dry, no rashes , lesions, or scars noted Neuro: Alert and oriented to person, place, month, year, and president, no focal defects, no tremors noted Psych: No acute distress, calm and cooperative during the exam Results & Data Results & Data Vital Signs (Past 12 Hours) Vital Signs Temp Pulse Pulse Resp BP BP Pulse Ox 03/11/23 11:03 70 18 144/89 H 96 03/11/23 09:44 66 18 134/84 96 03/11/23 08:15 77 03/11/23 08:16 77 16 96 03/11/23 08:10 18 96 03/11/23 08:10 03/11/23 07:58 36.6 C 74 16 146/98 H 95 O2 Del Method 03/11/23 11:03 Room Air 03/11/23 09:44 03/11/23 08:15 03/11/23 08:16 03/11/23 08:10 03/11/23 08:10 Room Air 03/11/23 07:58 Room Air Laboratory Results Abnormal lab results 03/11/23 03/11/23 03/11/23 Range/Units 08:18 08:18 10:57 RDW Std Deviation 46.6 H (36.4-46.3) fL [place] # (Auto) 0.70 H (0.11-0.59) K/uL Chloride 108 H (98-107) mmol/L BUN/Creatinine Ratio 26.2 H (10-20) Alkaline Phosphatase 105 H (34-104) U/L Pleural pH 7.65 H (7.3-7.4) Diagnostic Findings Chest X-Ray 03/11/23 08:13 SINGLE VIEW CHEST CLINICAL HISTORY: Atypical chest pain. FINDINGS: An AP, portable, upright chest radiograph is compared to study dated 12/15/2014. The examination is degraded by portable technique and patient rotation. The heart is enlarged noting atherosclerotic calcification of the thoracic aorta. The pulmonary vasculature is noncongested. Chronic interstitial thickening similar to previous. There is a moderate left apical pneumothorax with approximately 4 cm of pleural separation. The trachea is midline. There is elevation of the left hemidiaphragm and a small left pleural effusion. Consolidation is seen at the left lung base. The skeletal structures are osteopenic. There are acute appearing left-sided rib fractures. IMPRESSION: 1. There are acute appearing left-sided rib fractures 2. Moderate left apical pneumothorax. 3. Small left pleural effusion with left basilar consolidation. 4. Cardiomegaly without radiographic evidence of congestive failure. ACT 112: Negative or not required by law. Electronically signed by: Jacob White M.D. 03/11/2023 8:49 AM Chest CTA 03/11/23 08:37 CT ANGIOGRAM OF THE CHEST CLINICAL HISTORY: Atypical chest pain. Recent travel. Fall. COMPARISON STUDY: Chest x-ray dated 03/11/2023. TECHNIQUE: Following the IV administration of 120 cc of Optiray 320, CT angiogram of the chest was performed from the upper abdomen to the thoracic inlet utilizing the pulmonary embolus protocol. Images are reviewed in the axial, sagittal, and coronal planes. 3-D MIPS images are created and assessed. IV contrast was administered without complication. A dose lowering technique was utilized adhering to the principles of ALARA. CT DOSE: 1348.18 mGy.cm FINDINGS: Thyroid: Imaged portions of the thyroid gland are normal in size and attenuation. Thoracic aorta: The thoracic aorta is normal in caliber and demonstrates standard 3-vessel arch anatomy. No dissection is seen. Pulmonary vasculature: The pulmonary trunk is dilated, measuring 3.2 cm in diameter. This suggests pulmonary artery hypertension. There are no filling defects identified in main, lobar, or proximal segmental pulmonary branches to suggest pulmonary embolus. Evaluation of the peripheral branches is degraded by motion artifact. Heart: The heart is enlarged and without pericardial effusion. The coronary a rteries are densely calcified. Lungs and pleural spaces: Evaluation of the lung parenchyma is degraded by motion artifact. There is a moderate to large left pneumothorax which extends anteriorly from the apex to the base. There is a moderate left pleural effusion. Segmental atelectasis is seen in the left upper lobe/lingula. There is dependent atelectasis at the left lung base. The trachea is midline, and the trachea/central airways appear clear. Clustered nodular airspace opacities are seen in the right upper lobe on image #138 and in the right lower lobe on image #112. A 3 mm right middle lobe nodule is seen on image #112 and a 4 mm right middle lobe nodule is seen on image #67. Mediastinum: There is no mediastinal lymphadenopathy. Teresita: Clear. Axillae: There is no axillary lymphadenopathy. Upper abdomen: There is a small hiatal hernia. The gallbladder is distended. Nonobstructing left renal calculi measuring up to 5 mm. Skeletal structures: The skeletal structures are osteopenic. Degenerative change and hyperkyphosis is noted in the spine. No lytic or blastic bony lesions are seen. There are acute to subacute and mildly displaced fractures of the left posterolateral 4th through 6th ribs. There are also acute to subacute nondisplaced fractures of the left posterior 4th and 5th ribs. IMPRESSION: 1. Acute to subacute left-sided rib fractures as above. Note that 2 ribs are fractured at 2 sites. 2. Moderate to large left hydropneumothorax. 3. The trachea is midline. 4. Cardiomegaly. 5. There is no evidence of central pole embolus in the main, lobar, or proximal segmental pulmonary arteries. Evaluation of the peripheral branches is compromised by motion artifact. 6. Segmental atelectasis is seen in the left upper lobe/lingula. 7. Foci of clustered nodularity are seen in the right lung. These may be inflammatory. A 3-4 month follow-up chest CT is recommended for reassessment. 8. Left-sided nephrolithiasis. 9. Additional findings as above. ACT 112: Positive. There are findings on this exam that require communication between the performing entity and the patient following Patient Test Result Information Act ([place] Act 112) guidelines. Electronically signed by: Jacob White M.D. 03/11/2023 9:[address] 03/11/23 08:43 CT head/brain wo con CLINICAL HISTORY: fall Technique: Contiguous axial CT images of the head were acquired from the base of the skull to the vertex without intravenous contrast administration. Images were viewed in brain, subdural and bone windows. Automated dose lowering techniques and/or adjustment according to patient size were utilized for this exam. Comparison: Comparison is made to CT head 10/29/2021 Findings: Areas of decreased attenuation are present in the periventricular and subcortical white matter bilaterally consistent with small vessel ischemic disease. Generalized cerebral atrophy with commensurate enlargement of the ventricles, sulci, and cisterns is also present. There is no acute intracranial hemorrhage or evidence of acute territorial infarction. No shift of the midline structures, mass effect, or extra-axial abnormalities are shown. Atherosclerotic calcifications are present in the intracranial segments of the internal carotid arteries. 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 Imaged portions of the paranasal sinuses and mastoid air cells are clear. The orbits appear normal. There are no acute fractures of the calvaria or scalp swelling. Impression: No acute intracranial hemorrhage, no evidence of acute territorial infarction or other acute intracranial disease process. ACT 112: Negative or not required by law. Electronically signed by: Jason Merrill M.D. 03/11/2023 9:46 AM Chest X-Ray 03/11/23 10:54 XR chest 1V portable HISTORY: 87 years-old Female S/P Thoracentesis follow-up study in a patient with left pleural effusion COMPARISON: 03/11/2023 TECHNIQUE: AP view of the chest FINDINGS: Left-sided pleural catheter has been placed projected over the left lung base. Pulmonary vascular congestion. There is decreased size left pleural effusion. Trace left pleural effusion with mild bibasilar atelectasis. Trace right pleural effusion. Left-sided pneumothorax redemonstrated with pleural separation measuring up to 2.4 cm at the left lung apex. Bones appear grossly intact. Cardiomegaly. IMPRESSION: 1. Status post placement of a left basilar pigtail pleural drainage catheter with decreased size of the left pleural effusion. 2. Stable left-sided pneumothorax. 3. Trace pleural effusions with mild bibasilar atelectasis. 4. Cardiomegaly with pulmonary vascular congestion. ACT 112: Negative or not required by law. The above report was generated using voice recognition software. It may contain grammatical, syntax or spelling errors. Electronically signed by: Rod Simpson M.D. 03/11/2023 11:24 AM ECG Additional Comments: Normal sinus rhythm Low voltage QRS Cannot rule out Anterior infarct (cited on or before 14-NOV-2014) Abnormal ECG When compared with ECG of 15-DEC-2014 16:55, Nonspecific T wave abnormality has replaced inverted T waves in Anterior leads Code Status & VTE Plan Code Status FUll code VTE Prophylaxis Plan VTE Prophylaxis will be ordered: Yes Supervising Physician Co-Signing Physician Notes I personally saw and examined the patient. I verified all brewer points and agree with Stew Cabezas PA-C with the following exceptions and/or additions: 87 year old male presents to the ER after waking up with left sided chest pain and palpitations. Suspected she was in atrial fibrillation and took an extra dose of Flecainide which resolved her atrial fibrillation however on advice of cardiology nurse over the phone given trauma history in February recommended going to the ER for evaluation. CT in the ER showing large hydropneumothorax. With hind sight she has been more short of breath since her fall in [place]. No new trauma/falls since February 21. O/E HS RRR, no murmurs, seen s/p chest tube insertion and currently has good air entry to base and apex on left side, very mild crackles, Abdo SNT A/P Left sided rib fractures with hemopneumothorax - suspect occurred at time of trauma rather than. No definitive XR taken from notes from [facility] and patient did not remember. Will defer prophylaxis antibiotics and chest tube management to pulmonology. Abnormal clustered nodular density in the right lung - recommend 3-[address] Otherwise as above PG Care Time/CCT Total # of Minutes Spent Total Time Spent with Patient: Total time spent is greater than 50% in coordination of care (as documented) at patient's floor/unit and/or counseling patient: Coding [place] [address] INT INP/OBS CARE 2/55MIN Patient Type Established Medical Decision Making Moderate Complexity Diagnoses Hemopneumothorax, left J94.2 Left rib fracture S22.32XA Hypertension I10 Paroxysmal A-fib I48.0
[2023-03-11 11:49] LABS: Total Protein Pleural Fluid 3.9 gm/dl
[2023-03-11] MEDS ORDERED: guaiFENesin/CODEINE 100MG/10MG 5ML UDC PO STA (11:54)
[2023-03-11 12:00] LABS: Appearance Pleural Fluid Bloody; Basophils, Fluid 6 %; Color Pleural Fluid Red; Eosinophils, Fluid 33 %; Lymphocytes, Fluid 17 %; Mono,Macrophage,Mesothelial 41 %; Neutrophils, Fluid 3 %; RBC Pleural Fluid Auto 41000 /uL; Source Pleural Fluid Left Lung; WBC Pleural Fluid Auto 6949 /uL
[2023-03-11] MEDS ORDERED: ACETAMINOPHEN 500 MG TAB PO STA (12:02)
[2023-03-11] MEDS ORDERED: METOPROLOL SUCC 25MG EXT REL TAB PO STA (12:04)
[2023-03-11] MEDS ORDERED: FLECAINIDE ACETATE 100 MG TABLET PO STA (12:04)
--- NOTE | 2023-03-11 12:06 | Emergency Department Note ---
Impression & Plan Hemopneumothorax, left, Left rib fracture ED Provider Note INFORMANT: Patient ED PROVIDER(S): Darvin Titus MD CHIEF COMPLAINT: Left chest and back pain PLAN: Disposition: Admitted Outpatient prescription management: none Referral: None MEDICAL DECISION MAKING: Patient presented because of left chest and back pain. Chest x-ray was performed and showed an effusion on the left and pneumothorax. EKG and laboratory testing were unremarkable. Patient was sent for CT imaging. Head CT was negative. CT imaging of the chest reveals a left-sided hemopneumothorax with rib fractures. Consultation was placed with pulmonary critical care, Dr. osorio. We discussed chest tube placement and he has to see the patient promptly in the emergency department for catheter-based treatment. He did evaluate the patient in the emergency department and did place a pigtail catheter in the left chest. Patient will require further management in the hospital. Consultation was made with Dr. Simon Montoya of the [facility] service. Patient was evaluated in the ER for further management. Care/management discussed with: Discussed with manufacturing area manager Level of care consideration(s): After review of the information above and other included data, I feel the patient requires further management in the hospital Triage Nursing notes: reviewed and agree them. Vital Signs: reviewed and remarkable for no significant abnormalities Additional History obtained from: none Chronic Medical/Social Conditions affecting care: Anticoagulation Prior /Outside records reviewed: none Differential Diagnosis: Cardiac ischemia, aortic dissection, pulmonary embolism, pneumothorax, pneumonia, pericarditis, myocarditis, esophageal rupture, GERD, cholecystitis, pancreatitis, musculoskeletal, as well as other pathologies. Diagnostics, independently interpreted by me: ECG: Twelve-lead ECG reveals a normal sinus rhythm 73 bpm. Low voltage QRS. Anterior Q waves. No ST elevation Cardiac Monitoring: Cardiac monitoring ordered by me: The patient was placed on continuous cardiac monitoring and observed. It revealed a normal sinus rhythm at 71 beats per minute without ectopy or evidence of dysrhythmia. Medical decision rules: none Imaging studies: Chest x-ray and CT scans as above HPI: The patient is a 87-year-old female who arrives for evaluation of left chest and back pain. The pain woke her up this morning. She notes in the last few weeks she has been feeling less energy and somewhat short of breath. Patient was traveling to [place] 2 weeks ago. She had a fall and did injure her left side. She states she was seen the hospital there and cleared. Pt denies LOC, headache, fevers, chills, diaphoresis, visual changes, neck pain, nausea, vomiting, abdominal pain, back pain, melena, hematochezia, urinary symptoms, numbness, weakness, lymphadenopathy, rash, or other complaints. PAST MEDICAL HISTORY: See Below, anticoagulated, paroxysmal A-fib PAST SURGICAL HISTORY: See Below, SOCIAL HISTORY: See Below, retired HOME MEDICATIONS: See Below ALLERGIES: See Below VITALS: See Below PHYSICAL EXAMINATION: GENERAL: Awake, alert, well-appearing, in no distress HENT: Normocephalic, atraumatic. Oropharynx unremarkable. EYES: Normal conjunctiva. Sclera non-icteric. NECK: Inspection normal. Non-tender. Supple. No nuchal rigidity. FROM. No masses. RESPIRATORY: Clear to auscultation. No wheezes. No rales. Normal respiratory effort. CARDIAC: Normal rate. Normal rhythm. No murmurs. No rubs. Extremities warm and well perfused. Pulses equal. No JVD. GI: Soft, non-distended. No tenderness to palpation. No rebound or guarding. No masses. RECTAL: Deferred. MUSCULOSKELETAL: Atraumatic. Chest examination reveals left posterolateral rib tenderness. The back is symmetrical on inspection without obvious abnormality. There is no CVA tenderness to palpation. No joint edema. LOWER EXTREMITIES: Calves are equal size bilaterally and non-tender. No edema. No discoloration. NEURO: Normal sensorium. No sensory or motor deficits noted. SKIN: No rash or jaundice noted. PROCEDURES: none CRITICAL CARE: none OBSERVATION NOTE: none Past Med/Surg History Medical History Atrial fibrillation with rapid ventricular response Atrial fibrillation with RVR Carotid artery plaque Cerebral atherosclerosis Chronic anticoagulation Osteoarthritis of knee Osteoporosis SI (sacroiliac) joint inflammation Third degree uterine prolapse Surgical History H/O arthroscopy of knee H/O colonoscopy H/O oral surgery History of cataract surgery Family History Mother Cancer Dementia Squamous cell skin cancer, earlobe Brother Glaucoma Transient ischemic attack Adenocarcinoma of prostate Brother Glaucoma Retinal detachment Optic neuritis H/O hernia repair History of knee replacement Colon cancer Abdominal aortic aneurysm Hypertension Denies family history of Ovarian cancer Prostate cancer Myocardial infarction Breast cancer Social History Smoking Status: Former smoker Second Hand Exposure: No; Do You Dip or Chew Tobacco: No; Hx Alcohol Use: Yes (1-3 WEEKLY) Alcohol type: wine Hx Substance Use: No Preferred Language: Hebrew Communication Ability: Effective Visual Impairment: No Limitations Hearing Ability: Normal marital status: / current occupational status: retired current occupation: [employer] Feels Safe at Home: Yes Childhood Exposure to Second-Hand Smoke: Yes Dental Care, Regularly: Yes Physical Activity Frequency: 5-6 Times per Week Seatbelt Use: always Sunscreen Use: Yes Allergies Allergies Allergy/AdvReac Type Severity Reaction Status Date / Time bacitracin Allergy Unknown RASH Verified 03/07/23 11:01 neomycin Allergy Unknown RASH Verified 03/07/23 11:01 polymyxin B Allergy Unknown RASH Verified 03/07/23 11:01 Home Meds Home Medications Medication Instructions Recorded Confirmed calcium carbonate 500 mg-vitamin 1 tab PO DAILY 09/18/18 03/11/23 D3 10 mcg (400 unit) tablet (Calcium 500 With D) cholecalciferol (vitamin D3) 25 1,000 units PO DAILY 09/18/18 03/11/23 mcg (1,000 unit) capsule timolol 0.25 % eye drops 1 drp ophthalmic (eye) BID 02/25/21 03/11/23 vit C 250 mg-vit E 90 mg-zinc 40 2 cap PO DAILY 02/25/21 03/11/23 mg-copper 1 [id number] capsule (PreserVision AREDS-2) vitamin B complex (B See Rx Instructions .Route .COMPLEX 09/14/21 03/11/23 Complex-Vitamin B12 tablet) fluticasone propionate 50 2 spray intranasal DAILY PRN 03/11/23 03/11/23 mcg/actuation nasal Allergy Symptoms spray,suspension Previous Rx's Medication Instructions Recorded flecainide 50 mg tablet 50 mg PO BID #180 tabs 03/10/22 apixaban 5 mg tablet (Eliquis) 5 mg PO BID #180 tabs 07/10/23 metoprolol succinate 25 mg 25 mg PO DAILY #90 tabs 12/27/22 tablet,extended release 24 hr (Toprol XL) cyclobenzaprine 5 mg tablet 5 mg PO .QHS PRN muscle spasm #10 03/07/23 tabs Results & Data (ED) Vital Signs Vital Signs - 24 hr 03/11/23 07:58 03/11/23 08:10 03/11/23 08:10 Temperature 36.6 C Temperature Source Oral Pulse Rate 74 Pulse Rate [Apical] Pulse Rate from SpO2 Sensor Respiratory Rate 16 18 Respiratory Effort / Characteristics Respiratory Depth Blood Pressure 146/98 H Blood Pressure [Left Arm] Blood Pressure Mean 114 Blood Pressure Mean [Left Arm] Pulse Oximetry 95 96 Oxygen Delivery Method Room Air Room Air Sepsis Recent Fever Within 48 Hours No Sepsis New/Unexplained Change in Mental Status N/A Sepsis Action Taken by Nursing No Action Required 03/11/23 08:16 03/11/23 08:15 03/11/23 09:44 Temperature Temperature Source Pulse Rate 77 77 Pulse Rate [Apical] 66 Pulse Rate from SpO2 Sensor Respiratory Rate 16 18 Respiratory Effort / Characteristics Respiratory Depth Blood Pressure Blood Pressure [Left Arm] 134/84 Blood Pressure Mean Blood Pressure Mean [Left Arm] 100 Pulse Oximetry 96 96 Oxygen Delivery Method Sepsis Recent Fever Within 48 Hours Sepsis New/Unexplained Change in Mental Status Sepsis Action Taken by Nursing 03/11/23 11:03 03/11/23 08:11 03/11/23 08:20 Temperature Temperature Source Pulse Rate 76 74 Pulse Rate [Apical] 70 Pulse Rate from SpO2 Sensor Respiratory Rate 18 18 20 Respiratory Effort / Characteristics Non-Labored Respiratory Depth Normal Blood Pressure Blood Pressure [Left Arm] 144/89 H Blood Pressure Mean Blood Pressure Mean [Left Arm] 107 Pulse Oximetry 96 Oxygen Delivery Method Room Air Sepsis Recent Fever Within 48 Hours Sepsis New/Unexplained Change in Mental Status Sepsis Action Taken by Nursing 03/11/23 08:30 03/11/23 08:40 03/11/23 08:50 Temperature Temperature Source Pulse Rate 72 71 72 Pulse Rate [Apical] Pulse Rate from SpO2 Sensor Respiratory Rate 18 18 24 Respiratory Effort / Characteristics Respiratory Depth Blood Pressure Blood Pressure [Left Arm] Blood Pressure Mean Blood Pressure Mean [Left Arm] Pulse Oximetry Oxygen Delivery Method Sepsis Recent Fever Within 48 Hours Sepsis New/Unexplained Change in Mental Status Sepsis Action Taken by Nursing 03/11/23 09:00 03/11/23 09:10 03/11/23 09:35 Temperature Temperature Source Pulse Rate 71 93 H Pulse Rate [Apical] Pulse Rate from SpO2 Sensor Respiratory Rate 20 27 H 17 Respiratory Effort / Characteristics Respiratory Depth Blood Pressure Blood Pressure [Left Arm] Blood Pressure Mean Blood Pressure Mean [Left Arm] Pulse Oximetry Oxygen Delivery Method Sepsis Recent Fever Within 48 Hours Sepsis New/Unexplained Change in Mental Status Sepsis Action Taken by Nursing 03/11/23 09:40 03/11/23 09:44 03/11/23 09:44 Temperature Temperature Source Pulse Rate 70 66 Pulse Rate [Apical] Pulse Rate from SpO2 Sensor 70 66 Respiratory Rate 21 12 Respiratory Effort / Characteristics Respiratory Depth Blood Pressure 138/84 Blood Pressure [Left Arm] Blood Pressure Mean 107 Blood Pressure Mean [Left Arm] Pulse Oximetry 95 96 Oxygen Delivery Method Sepsis Recent Fever Within 48 Hours Sepsis New/Unexplained Change in Mental Status Sepsis Action Taken by Nursing 03/11/23 09:50 03/11/23 09:57 03/11/23 09:57 Temperature Temperature Source Pulse Rate 70 65 Pulse Rate [Apical] Pulse Rate from SpO2 Sensor 69 65 Respiratory Rate 18 17 Respiratory Effort / Characteristics Respiratory Depth Blood Pressure 141/86 H Blood Pressure [Left Arm] Blood Pressure Mean 109 Blood Pressure Mean [Left Arm] Pulse Oximetry 96 96 Oxygen Delivery Method Sepsis Recent Fever Within 48 Hours Sepsis New/Unexplained Change in Mental Status Sepsis Action Taken by Nursing 03/11/23 10:00 03/11/23 10:00 03/11/23 10:10 Temperature Temperature Source Pulse Rate 66 66 Pulse Rate [Apical] Pulse Rate from SpO2 Sensor 66 67 Respiratory Rate 16 22 Respiratory Effort / Characteristics Respiratory Depth Blood Pressure 158/89 H Blood Pressure [Left Arm] Blood Pressure Mean 112 Blood Pressure Mean [Left Arm] Pulse Oximetry 96 98 Oxygen Delivery Method Sepsis Recent Fever Within 48 Hours Sepsis New/Unexplained Change in Mental Status Sepsis Action Taken by Nursing 03/11/23 10:20 03/11/23 10:30 03/11/23 10:30 Temperature Temperature Source Pulse Rate 65 Pulse Rate [Apical] Pulse Rate from SpO2 Sensor 65 Respiratory Rate 16 Respiratory Effort / Characteristics Respiratory Depth Blood Pressure 154/82 H 154/82 H Blood Pressure [Left Arm] Blood Pressure Mean 100 100 Blood Pressure Mean [Left Arm] Pulse Oximetry 96 Oxygen Delivery Method Sepsis Recent Fever Within 48 Hours Sepsis New/Unexplained Change in Mental Status Sepsis Action Taken by Nursing 03/11/23 10:30 03/11/23 10:40 03/11/23 10:40 Temperature Temperature Source Pulse Rate 67 71 Pulse Rate [Apical] Pulse Rate from SpO2 Sensor 67 76 Respiratory Rate 19 24 Respiratory Effort / Characteristics Respiratory Depth Blood Pressure 128/89 Blood Pressure [Left Arm] Blood Pressure Mean 102 Blood Pressure Mean [Left Arm] Pulse Oximetry 96 89 L Oxygen Delivery Method Sepsis Recent Fever Within 48 Hours Sepsis New/Unexplained Change in Mental Status Sepsis Action Taken by Nursing 03/11/23 10:50 03/11/23 10:50 03/11/23 11:00 Temperature Temperature Source Pulse Rate 67 Pulse Rate [Apical] Pulse Rate from SpO2 Sensor 68 Respiratory Rate 19 Respiratory Effort / Characteristics Respiratory Depth Blood Pressure 126/84 144/89 H Blood Pressure [Left Arm] Blood Pressure Mean 89 112 Blood Pressure Mean [Left Arm] Pulse Oximetry 97 Oxygen Delivery Method Sepsis Recent Fever Within 48 Hours Sepsis New/Unexplained Change in Mental Status Sepsis Action Taken by Nursing 03/11/23 11:00 03/11/23 11:00 03/11/23 11:10 Temperature Temperature Source Pulse Rate 72 Pulse Rate [Apical] Pulse Rate from SpO2 Sensor 72 Respiratory Rate 17 Respiratory Effort / Characteristics Respiratory Depth Blood Pressure 144/89 H 149/90 H Blood Pressure [Left Arm] Blood Pressure Mean 112 111 Blood Pressure Mean [Left Arm] Pulse Oximetry 97 Oxygen Delivery Method Sepsis Recent Fever Within 48 Hours Sepsis New/Unexplained Change in Mental Status Sepsis Action Taken by Nursing 03/11/23 11:10 03/11/23 11:20 03/11/23 11:20 Temperature Temperature Source Pulse Rate 67 69 Pulse Rate [Apical] Pulse Rate from SpO2 Sensor 67 68 Respiratory Rate 18 19 Respiratory Effort / Characteristics Respiratory Depth Blood Pressure 141/90 H Blood Pressure [Left Arm] Blood Pressure Mean 98 Blood Pressure Mean [Left Arm] Pulse Oximetry 97 97 Oxygen Delivery Method Sepsis Recent Fever Within 48 Hours Sepsis New/Unexplained Change in Mental Status Sepsis Action Taken by Nursing 03/11/23 11:40 Temperature Temperature Source Pulse Rate 64 Pulse Rate [Apical] Pulse Rate from SpO2 Sensor 64 Respiratory Rate 12 Respiratory Effort / Characteristics Respiratory Depth Blood Pressure Blood Pressure [Left Arm] Blood Pressure Mean Blood Pressure Mean [Left Arm] Pulse Oximetry 97 Oxygen Delivery Method Sepsis Recent Fever Within 48 Hours Sepsis New/Unexplained Change in Mental Status Sepsis Action Taken by Nursing Laboratory Data 03/11/23 08:18 03/11/23 08:18 Lab Results 03/11/23 03/11/23 03/11/23 Range/Units 08:18 08:18 10:57 WBC 6.73 (4.8-10.8) K/ul RBC 4.59 (4.20-5.40) M/uL Hgb 14.4 (12.0-16.0) g/dl Hct 43.7 (37.0-47.0) % MCV 95.2 (80.0-100.0) fL MCH 31.4 (25.0-34.0) pg MCHC 33.0 (32.0-36.0) g/dL RDW Std Deviation 46.6 H (36.4-46.3) fL RDW Coeff of Juan Antonio 13.3 (11.5-14.5) % Plt Count 308 (130-400) K/uL MPV 9.8 (9.4-12.4) fL Immature Gran % (Auto) 0.3 % Neut % (Auto) 56.8 % Lymph % (Auto) 25.1 % [place] % (Auto) 10.4 % Eos % (Auto) 6.7 % Baso % (Auto) 0.7 % Neut # (Auto) 3.82 (1.40-6.50) K/uL Lymph # (Auto) 1.69 (1.20-3.40) K/uL [place] # (Auto) 0.70 H (0.11-0.59) K/uL Eos # (Auto) 0.45 (0.00-0.50) K/uL Baso # (Auto) 0.05 (0.00-0.20) K/uL Immature Gran # (Auto) 0.02 (0.01-0.20) K/uL Sodium 139 (136-145) mmol/L Potassium 4.1 (3.5-5.1) mmol/L Chloride 108 H (98-107) mmol/L Carbon Dioxide 26 (21-32) mmol/L Anion Gap 5 (3-11) BUN 16 (6-23) mg/dl Creatinine 0.61 (0.6-1.2) mg/dl Est Cr Clr Drug Dosing 83.0 ml/min Est GFR ( Amer) 95.8 ml/min Est GFR (Non-Af Amer) 82.7 ml/min BUN/Creatinine Ratio 26.2 H (10-20) Glucose 99 (70-99(Fasting)) mg/dl Calcium 9.7 (8.6-10.3) mg/dl Total Bilirubin 0.5 (0.2-1.0) mg/dl AST 31 (13-39) U/L ALT 27 (7-52) U/L Alkaline Phosphatase 105 H (34-104) U/L Lactate Dehydrogenase TNP Troponin I High Sens 4.8 (0-14) pg/ml Total Protein 6.8 (6.0-8.3) gm/dl Albumin 3.8 (3.4-5.0) gm/dl Globulin 3.0 (2.5-4.0) gm/dl Albumin/Globulin Ratio 1.3 (0.9-2) Lipase 36 (11-82) U/L Fluid Neutrophils % 3 % Fluid Lymphocytes % 17 % Fluid Eosinophils % 33 % Fluid Basophils % 6 % Fluid Meso/Macro/[place] % 41 % Fluid Comment Pleural Fluid Source Left Lung Pleural Color Red Pleural Appearance Bloody Pleural pH (7.3-7.4) Pleural WBC (Auto) 6949 /uL Pleural RBC (Auto) 69418 /uL Pleural Total Protein gm/dl Pleural LDH U/L Pleural Glucose mg/dl Pleural Amylase U/L 03/11/23 03/11/23 Range/Units 10:57 10:57 WBC (4.8-10.8) K/ul RBC (4.20-5.40) M/uL Hgb (12.0-16.0) g/dl Hct (37.0-47.0) % MCV (80.0-100.0) fL MCH (25.0-34.0) pg MCHC (32.0-36.0) g/dL RDW Std Deviation (36.4-46.3) fL RDW Coeff of [place] (11.5-14.5) % Plt Count (130-400) K/uL MPV (9.4-12.4) fL Immature Gran % (Auto) % Neut % (Auto) % Lymph % (Auto) % [place] % (Auto) % Eos % (Auto) % Baso % (Auto) % Neut # (Auto) (1.40-6.50) K/uL Lymph # (Auto) (1.20-3.40) K/uL [place] # (Auto) (0.11-0.59) K/uL Eos # (Auto) (0.00-0.50) K/uL Baso # (Auto) (0.00-0.20) K/uL Immature Gran # (Auto) (0.01-0.20) K/uL Sodium (136-145) mmol/L Potassium (3.5-5.1) mmol/L Chloride (98-107) mmol/L Carbon Dioxide (21-32) mmol/L Anion Gap (3-11) BUN (6-23) mg/dl Creatinine (0.6-1.2) mg/dl Est Cr Clr Drug Dosing ml/min Est GFR ( Amer) ml/min Est GFR (Non-Af Amer) ml/min BUN/Creatinine Ratio (10-20) Glucose (70-99(Fasting)) mg/dl Calcium (8.6-10.3) mg/dl Total Bilirubin (0.2-1.0) mg/dl AST (13-39) U/L ALT (7-52) U/L Alkaline Phosphatase (34-104) U/L Lactate Dehydrogenase Troponin I High Sens (0-14) pg/ml Total Protein (6.0-8.3) gm/dl Albumin (3.4-5.0) gm/dl Globulin (2.5-4.0) gm/dl Albumin/Globulin Ratio (0.9-2) Lipase (11-82) U/L Fluid Neutrophils % % Fluid Lymphocytes % % Fluid Eosinophils % % Fluid Basophils % % Fluid Meso/Macro/[place] % % Fluid Comment Pleural Fluid Source Pleural Color Pleural Appearance Pleural pH 7.65 H (7.3-7.4) Pleural WBC (Auto) /uL Pleural RBC (Auto) /uL Pleural Total Protein 3.9 gm/dl Pleural LDH 189 U/L Pleural Glucose 99 mg/dl Pleural Amylase 19 U/L Administered Medications Guaifenesin/Codeine Phosphate (Guaifenesin/Codeine 100mg/10mg 5ml Udc) 5 ml PO Q6H MAME Stop: 04/10/23 17:00 Last Admin: 03/11/23 14:35 Dose: Not Given Documented By: KT Morphine Sulfate (Morphine Sulfate 2 Mg/Ml Carp) 2 mg IV Q3H PRN PRN Reason: Pain (5+) Stop: 03/25/23 12:01 Last Admin: 03/11/23 12:13 Dose: 2 mg Documented By: KENNEDY Discontinued Medications Acetaminophen (Acetaminophen 500 Mg Tab) 1,000 mg PO NOW STA Stop: 03/11/23 12:03 Last Admin: 03/11/23 12:13 Dose: 1,000 mg Documented By: KENNEDY Flecainide Acetate (Flecainide Acetate 100 Mg Tablet) 50 mg PO NOW STA Stop: 03/11/23 12:05 Last Admin: 03/11/23 13:35 Dose: Not Given Documented By: JODY Guaifenesin/Codeine Phosphate (Guaifenesin/Codeine 100mg/10mg 5ml Udc) 5 ml PO NOW STA Stop: 03/11/23 11:55 Last Admin: 03/11/23 12:13 Dose: 5 ml Documented By: KENNEDY Ioversol (Optiray 320 125ml) 120 ml IV ONCE ONE Stop: 03/11/23 09:24 Last Admin: 03/11/23 09:23 Dose: 120 ml Documented By: AUGUSTO Lidocaine HCl (Lidocaine 1% Local 20 Ml Vial) Confirm Administered Dose 1 ml .ROUTE .STK-MED ONE Stop: 03/11/23 10:18 Last Admin: 03/11/23 11:11 Dose: 1 ml Documented By: [id number] Metoprolol Succinate (Metoprolol Succ 25mg Ext Rel Tab) 25 mg PO NOW STA Stop: 03/11/23 12:05 Last Admin: 03/11/23 13:36 Dose: 25 mg Documented By: JODY Imaging Data Radiologist's Impression: Chest X-Ray 03/11/23 08:13 SINGLE VIEW CHEST CLINICAL HISTORY: Atypical chest pain. FINDINGS: An AP, portable, upright chest radiograph is compared to study dated 12/15/2014. The examination is degraded by portable technique and patient rotation. The heart is enlarged noting atherosclerotic calcification of the thoracic aorta. The pulmonary vasculature is noncongested. Chronic interstitial thickening similar to previous. There is a moderate left apical pneumothorax with approximately 4 cm of pleural separation. The trachea is midline. There is elevation of the left hemidiaphragm and a small left pleural effusion. Consolidation is seen at the left lung base. The skeletal structures are osteopenic. There are acute appearing left-sided rib fractures. IMPRESSION: 1. There are acute appearing left-sided rib fractures 2. Moderate left apical pneumothorax. 3. Small left pleural effusion with left basilar consolidation. 4. Cardiomegaly without radiographic evidence of congestive failure. ACT 112: Negative or not required by law. Electronically signed by: Jacob White M.D. 03/11/2023 8:49 AM Chest CTA 03/11/23 08:37 CT ANGIOGRAM OF THE CHEST CLINICAL HISTORY: Atypical chest pain. Recent travel. Fall. COMPARISON STUDY: Chest x-ray dated 03/11/2023. TECHNIQUE: Following the IV administration of 120 cc of Optiray 320, CT angiogram of the chest was performed from the upper abdomen to the thoracic inlet utilizing the pulmonary embolus protocol. Images are reviewed in the axial, sagittal, and coronal planes. 3-D MIPS images are created and assessed. IV contrast was administered without complication. A dose lowering technique was utilized adhering to the principles of ALARA. CT DOSE: 1348.18 mGy.cm FINDINGS: Thyroid: Imaged portions of the thyroid gland are normal in size and attenuation. Thoracic aorta: The thoracic aorta is normal in caliber and demonstrates standard 3-vessel arch anatomy. No dissection is seen. Pulmonary vasculature: The pulmonary trunk is dilated, measuring 3.2 cm in diameter. This suggests pulmonary artery hypertension. There are no filling defects identified in main, lobar, or proximal segmental pulmonary branches to suggest pulmonary embolus. Evaluation of the peripheral branches is degraded by motion artifact. Heart: The heart is enlarged and without pericardial effusion. The coronary arteries are densely calcified. Lungs and pleural spaces: Evaluation of the lung parenchyma is degraded by [place] on artifact. There is a moderate to large left pneumothorax which extends anteriorly from the apex to the base. There is a moderate left pleural effusion. Segmental atelectasis is seen in the left upper lobe/lingula. There is dependent atelectasis at the left lung base. The trachea is midline, and the trachea/central airways appear clear. Clustered nodular airspace opacities are seen in the right upper lobe on image #138 and in the right lower lobe on image #112. A 3 mm right middle lobe nodule is seen on image #112 and a 4 mm right middle lobe nodule is seen on image #67. Mediastinum: There is no mediastinal lymphadenopathy. Teresita: Clear. Axillae: There is no axillary lymphadenopathy. Upper abdomen: There is a small hiatal hernia. The gallbladder is distended. Nonobstructing left renal calculi measuring up to 5 mm. Skeletal structures: The skeletal structures are osteopenic. Degenerative change and hyperkyphosis is noted in the spine. No lytic or blastic bony lesions are seen. There are acute to subacute and mildly displaced fractures of the left posterolateral 4th through 6th ribs. There are also acute to subacute nondisplaced fractures of the left posterior 4th and 5th ribs. IMPRESSION: 1. Acute to subacute left-sided rib fractures as above. Note that 2 ribs are fractured at 2 sites. 2. Moderate to large left hydropneumothorax. 3. The trachea is midline. 4. Cardiomegaly. 5. There is no evidence of central pole embolus in the main, lobar, or proximal segmental pulmonary arteries. Evaluation of the peripheral branches is compromised by motion artifact. 6. Segmental atelectasis is seen in the left upper lobe/lingula. 7. Foci of clustered nodularity are seen in the right lung. These may be inflammatory. A 3-4 month follow-up chest CT is recommended for reassessment. 8. Left-sided nephrolithiasis. 9. Additional findings as above. ACT 112: Positive. There are findings on this exam that require communication between the performing entity and the patient following Patient Test Result Information Act ([place] Act 112) guidelines. Electronically signed by: Jacob White M.D. 03/11/2023 9:[address] 03/11/23 08:43 CT head/brain wo con CLINICAL HISTORY: fall Technique: Contiguous axial CT images of the head were acquired from the base of the skull to the vertex without intravenous contrast administration. Images were viewed in brain, subdural and bone windows. Automated dose lowering techniques a nd/or adjustment according to patient size were utilized for this exam. Comparison: Comparison is made to CT head 10/29/2021 Findings: Areas of decreased attenuation are present in the periventricular and subcortical white matter bilaterally consistent with small vessel ischemic disease. Generalized cerebral atrophy with commensurate enlargement of the ventricles, sulci, and cisterns is also present. There is no acute intracranial hemorrhage or evidence of acute territorial infarction. No shift of the midline structures, mass effect, or extra-axial abnormalities are shown. Atherosclerotic calcifications are present in the intracranial segments of the internal carotid arteries. 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 Imaged portions of the paranasal sinuses and mastoid air cells are clear. The orbits appear normal. There are no acute fractures of the calvaria or scalp swelling. Impression: No acute intracranial hemorrhage, no evidence of acute territorial infarction or other acute intracranial disease process. ACT 112: Negative or not required by law. Electronically signed by: Jason Merrill M.D. 03/11/2023 9:46 AM Chest X-Ray 03/11/23 10:54 XR chest 1V portable HISTORY: 87 years-old Female S/P Thoracentesis follow-up study in a patient with left pleural effusion COMPARISON: 03/11/2023 TECHNIQUE: AP view of the chest FINDINGS: Left-sided pleural catheter has been placed projected over the left lung base. Pulmonary vascular congestion. There is decreased size left pleural effusion. Trace left pleural effusion with mild bibasilar atelectasis. Trace right pleural effusion. Left-sided pneumothorax redemonstrated with pleural separation m easuring up to 2.4 cm at the left lung apex. Bones appear grossly intact. Cardiomegaly. IMPRESSION: 1. Status post placement of a left basilar pigtail pleural drainage catheter with decreased size of the left pleural effusion. 2. Stable left-sided pneumothorax. 3. Trace pleural effusions with mild bibasilar atelectasis. 4. Cardiomegaly with pulmonary vascular congestion. ACT 112: Negative or not required by law. The above report was generated using voice recognition software. It may contain grammatical, syntax or spelling errors. Electronically signed by: Rod Sipmson M.D. 03/11/2023 11:24 AM Discharge Plan Visit Data Chief Complaint: Cardiac Assessment Stated Complaint: BACK DISCOMFORT, CARDIAC ASSESSMENT ED Provider: Darvin Titus Discharge Problem: Hemopneumothorax, left, Left rib fracture Discharge Instructions Interventions: ED Discharge Assessment Last Done: 03/11/23 11:52
[2023-03-11] MEDS: MoRPHine SULFATE 2 MG/ML CARP IV PRN ×2 (12:13→16:06)
--- NOTE | 2023-03-11 14:29 | Electrocardiogram Report ---
Test Reason : Blood Pressure : / mmHG Vent. Rate : 073 BPM Atrial Rate : 073 BPM P-R Int : 184 ms QRS Dur : 096 ms QT Int : 404 ms P-R-T Axes : 056 008 042 degrees QTc Int : 445 ms Normal sinus rhythm Low voltage QRS Poor R wave progression, consider anterior TX vs. lead placement vs. LVH Abnormal ECG When compared with ECG of 15-DEC-2014 16:55, Nonspecific T wave abnormality has replaced inverted T waves in Anterior leads Confirmed by Ab Abraham ([id number]) on 03/11/2023 2:29:30 PM Referred By: REFERRED SELF Confirmed By:Imer Abraham
[2023-03-11] MEDS: guaiFENesin/CODEINE 100MG/10MG 5ML UDC PO SCH ×2 (14:35→18:17)
[2023-03-11] MEDS: FLECAINIDE ACETATE 100 MG TABLET PO SCH (21:10)
[2023-03-11] MEDS: TIMOLOL MALEATE 0.25% OP SOLN 5 ML BTL OP SCH (21:11)
[2023-03-12] MEDS: guaiFENesin/CODEINE 100MG/10MG 5ML UDC PO SCH ×4 (00:51→19:30)
[2023-03-12] MEDS: MoRPHine SULFATE 2 MG/ML CARP IV PRN ×2 (00:53→06:13)
[2023-03-12 02:27] LABS: Influenza A virus by PCR Negative (Neg); Influenza B virus by PCR Negative (Neg); RSV by PCR Negative (Neg); SARS CoV2 RNA(COVID-19) Ceph NEGATIVE (Negative)
[2023-03-12 06:05] LABS: Basophils # (auto) 0.04 K/uL (0.00-0.20); Basophils % (auto) 0.5 %; Eosinophils # (auto) 0.34 K/uL (0.00-0.50); Eosinophils % (auto) 4.4 %; Hematocrit (blood only) 40.6 % (37.0-47.0); Hemoglobin 13.2 g/dl (12.0-16.0); Immature Granulocytes # (auto) 0.03 K/uL (0.01-0.20); Immature Granulocytes % (auto) 0.4 %; Lymphocytes # (auto) 1.49 K/uL (1.20-3.40); Lymphocytes % (auto) 19.1 %; Mean Corpuscular Hemoglobin 30.9 pg (25.0-34.0); Mean Corpuscular Hgb Conc 32.5 g/dL (32.0-36.0); Mean Corpuscular Volume 95.1 fL (80.0-100.0); Mean Platelet Volume 9.5 fL (9.4-12.4); Monocytes # (auto) 0.78 K/uL (0.11-0.59); Neutrophils # (auto) 5.11 K/uL (1.40-6.50); Neutrophils % (auto) 65.6 %; Platelet Count 270 K/uL (130-400); RDW Coefficient of Variation 13.3 % (11.5-14.5); RDW Standard Deviation 46.8 fL (36.4-46.3); Red Blood Count 4.27 M/uL (4.20-5.40); White Blood Count 7.79 K/ul (4.8-10.8)
[2023-03-12 06:17] LABS: Albumin Globulin Ratio 1.2 (0.9-2); Albumin Level 3.4 gm/dl (3.4-5.0); BUN Creatinine Ratio 26.8 (10-20); Bilirubin,Total 0.5 mg/dl (0.2-1.0); Calcium 9.1 mg/dl (8.6-10.3); Creatinine Clr Calc Pharmacy 85.9 ml/min; Est GFR (African American) 98.5 ml/min; Globulin 2.8 gm/dl (2.5-4.0); Potassium 3.9 mmol/L (3.5-5.1); Total Protein 6.2 gm/dl (6.0-8.3)
[2023-03-12 06:37] LABS: Prothrombin Time 11.4 Seconds (9.0-12.0)
--- NOTE | 2023-03-12 07:49 | XRay Report ---
SINGLE VIEW CHEST CLINICAL HISTORY: Pneumothorax and chest tube. FINDINGS: An AP, portable, upright chest radiograph is compared to chest x-ray and chest CT dated 03/11/2023. The examination is mildly degraded by portable technique and patient rotation. The heart is enlarged noting atherosclerotic calcification of the thoracic aorta. The pulmonary vasculature is non congested. Chronic interstitial thickening similar to previous. There is elevation of the right hemid iaphragm. A chest tube at the left lung base has been repositioned. There is a small residual left pl eural effusion with left basilar consolidation. There is only trace residual left apical pneumothorax . The skeletal structures are osteopenic. Acute appearing left-sided rib fractures are again noted. IMPRESSION: 1. A left-sided chest tube has been repositioned and there is only trace residual left apical pneumot horax. This has significantly decreased in size from yesterday. 2. Trace residual left pleural effusion. 3. Acute appearing left-sided rib fractures are again noted. 4. Cardiomegaly without radiographic evidence of congestive failure. ACT 112: Negative or not required by law. Electronically signed by: Jacob White M.D. 03/12/2023 7:47 AM
[2023-03-12] MEDS: TIMOLOL MALEATE 0.25% OP SOLN 5 ML BTL OP SCH ×2 (08:05→21:28)
[2023-03-12] MEDS: FLECAINIDE ACETATE 100 MG TABLET PO SCH ×2 (08:14→21:27)
[2023-03-12] MEDS: METOPROLOL SUCC 25MG EXT REL TAB PO SCH (08:14)
--- NOTE | 2023-03-12 09:08 | Pulmonology Progress Note ---
Date of Service March 12, 2023 Assessment & Plan (1) Hydropneumothorax: (2) Left rib fracture: (3) Paroxysmal A-fib: (4) Abnormal chest CT: Plan CT chest 03/11/2023 personally reviewed: Left-sided moderate pneumothorax with fluid effusion atelectasis of the inferior lobe of the lingula Cardiomegaly No significant mediastinal lymphadenopathy -- Left hydropneumothorax Likely secondary to the fall and multiple rib fractures on the left side S/p pigtail catheter 03/11/2023 --Multiple left-sided rib fractures Pain management --A-fib On apixaban Plan: Chest x-ray from today shows significant improvement in the pneumothorax. Small apical pneumothorax will persist There is no continuous air leak on the chest tube. Chest tube has retracted a little bit but still within the pleural cavity. Patient did have some fibrin material in the chest tube which was flushed with saline. Continue with continuous suction. If there is no significant change in the ch est x-ray tomorrow we will try to clamp the tube and see if we will be able to remove it Okay to resume apixaban Case was discussed with Dr. Wiseman and RN Please note the above document was generated using voice recognition software. It may contain grammatical, syntax or spelling errors.Any formal questions or concerns about the content, text or information contained within the body of this dictation should be directly addressed to the provider for clarification. Admission and Anticipated Discharge Date Admission Date: March 11, 2023 Subjective Patient seen and examined at bedside. No acute distress, no adverse events overnight Complains of mild tenderness at the site of the chest tube which is worse because of the rib fractures other than the chest tube itself. Denies any nausea vomiting No headache Fair appetite Review of Systems Review of Systems: All systems reviewed & are unremarkable except as noted in Subjective Physical Exam Physical Exam: Constitutional: No acute distress HEENT: EOMI, PERRLA Respiratory system: Decreased air entry on the left side, no wheeze, rhonchi, positive crackles CVS: S1-S2 positive, no murmurs or gallops Abdomen: Soft, nontender, nondistended, positive bowel sounds x4 Extremities: +2 pulses bilaterally radialis/ dorsalis pedis, no cyanosis, +1 edema bilateral lower extremity Neuro: Awake alert oriented x3 Psych: Normal mood and affect G/U: No Fenton Skin: no rashes, warm and dry Lymphatic: no cervical or axillary lymphadenopathy Results & Data Results & Data Vital Signs (Past 12 Hours) Vital Signs Temp Pulse Pulse Resp BP BP Pulse Ox 03/12/23 08:00 03/12/23 07:45 36.6 C 65 18 115/76 94 03/12/23 04:19 36.8 C 63 16 124/79 91 03/11/23 21:58 61 03/11/23 23:19 36.7 C 64 18 115/75 92 O2 Del Method 03/12/23 08:00 Room Air 03/12/23 07:45 Room Air 03/12/23 04:19 Room Air 03/11/23 21:58 03/11/23 23:19 Room Air Laboratory Results 03/12/23 05:39 03/12/23 05:39 PG Care Time/CCT Total # of Minutes Spent Total Time Spent with Patient: Total time spent is greater than 50% in coordination of care (as documented) at patient's floor/unit and/or counseling patient: Coding Level of Care Code 22187 SUB INP/OBS CARE 3/50MIN Diagnoses Hydropneumothorax J94.8 Left rib fracture S22.32XA Paroxysmal A-fib I48.[address] R93.89
[2023-03-12] MEDS: ACETAMINOPHEN 325 MG TAB PO SCH ×2 (18:14→21:28)
[2023-03-12] MEDS: APIXABAN 5 MG TABLET PO SCH (21:25)
--- NOTE | 2023-03-12 23:29 | Hospitalist Progress Note ---
Date of Service March 12, 2023 Assessment & Plan (1) Hemopneumothorax, left: Plan: -Admit to med/tele on continuous pulse oximetry -Currently hemodynamically stable and stable on RA -Came to the ED for acute, left-sided chest pain which woke her up from sleep this am -CTA of the chest showed left apical pneumothorax and left hydropneumothorax, as-well-as acute to subacute and mildly displaced fractures of the left posterolateral 4th through 6th ribs and nondisplaced fractures of the left posterior 4th and 5th ribs -Pulmonology was consulted and has placed a left-sided chest tube; repeat chest xray shows improving left effusion and stable left pneumothorax -Chest tube is currently set to 20 mmhg with approximately 500 cc of bloody drainage -Will give patient a dose of codeine cough syrup now as she is in pain and coughing, if it helps her cough will scheduled -Will give 1000 mg PO Acetaminophen now -Will start prn IV morphine for severe pain and tylenol for mild pain/fever -Q1H incentive spirometry -Hold Eliquis and chemical DVT PPX for now; BL WENDY's for DVT PPX for now -DMII diet -Pain appears controlled on 03/12, patient breathing well. Patient has no new complaints. (2) Left rib fracture: Plan: -Sustained during her fall in [place] -Continue to monitor for new or worsening pain/SOB -Pain control per Hemopneumothorax plan (3) Hypertension: Plan: -Stable -Conitnue to monitor (4) Paroxysmal A-fib: Plan: -Currently in NSR -Will give am doses of Flecainide and metoprolol on admission -Continue flecanide and metoprolol -Hold eliquis for now, Pulmonology is in agreement Admission and Anticipated Discharge Date Admission Date: March 11, 2023 Subjective 87 yo female reports no new symptoms. Review of Systems Review of Systems: All systems reviewed & are unremarkable except as noted in HPI & below Physical Exam Physical Exam: General: In no acute distress, stated age, well-nourished, good hygiene, non-toxic appearing HEENT: Normocephalic, atraumatic, no scleral icterus, pupils around round, symmetrical, and reactive to light, moist mucus membranes, trachea midline, no thyromegaly Chest/Pulm: Chest tube is currently in place in the left chest \ Cardiac: RRR, no murmurs noted Results & Data Results & Data Vital Signs (Past 12 Hours) Vital Signs Temp Pulse Pulse Resp BP Pulse Ox O2 Del Method 03/12/23 19:43 36.4 C L 73 18 109/71 91 Room Air 03/12/23 16:26 Room Air 03/12/23 17:00 68 03/12/23 16:21 37.1 C 67 16 125/83 94 Room Air 03/12/23 11:49 36.5 C 71 18 108/71 93 Room Air PG Care Time/CCT Total # of Minutes Spent Total Time Spent with Patient: Total time spent is greater than 50% in coordination of care (as documented) at patient's floor/unit and/or counseling patient: Coding Level of Care Code 36366 SUB INP/OBS CARE 2/35MIN Diagnoses Hemopneumothorax, left J94.2 Left rib fracture S22.32XA Hypertension I10 Paroxysmal A-fib I48.0
[2023-03-13] MEDS: guaiFENesin/CODEINE 100MG/10MG 5ML UDC PO SCH ×5 (00:18→23:50)
[2023-03-13] MEDS: MoRPHine SULFATE 2 MG/ML CARP IV PRN (01:22)
[2023-03-13 08:01] LABS: INR 1.1 (0.9-1.1); Prothrombin Time 11.6 Seconds (9.0-12.0)
--- NOTE | 2023-03-13 08:35 | XRay Report ---
SINGLE VIEW CHEST CLINICAL HISTORY: Pneumothorax and chest tube. FINDINGS: An AP, portable, upright chest radiograph is compared to chest x-ray and chest CT dated 03/12/2023. The examination is mildly degraded by portable technique and patient rotation. The heart is enlarged noting atherosclerotic calcification of the thoracic aorta. The pulmonary vasculature is non congested. Chronic interstitial thickening is similar to previous. There is elevation of the right he midiaphragm. A chest tube at the left lung base is unchanged in position. No residual pneumothorax is clearly seen. The skeletal structures are osteopenic. Acute appearing left-sided rib fractures are a gain noted. IMPRESSION: 1. A left-sided chest tube has is unchanged in position. No residual pneumothorax is clearly identifi ed. 2. Trace residual left pleural effusion. 3. Acute appearing left-sided rib fractures are again noted. 4. Cardiomegaly without radiographic evidence of congestive failure. ACT 112: Negative or not required by law. Electronically signed by: Jacob White M.D. 03/13/2023 8:34 AM
[2023-03-13 08:43] LABS: Basophils # (auto) 0.05 K/uL (0.00-0.20); Basophils % (auto) 0.6 %; Eosinophils # (auto) 0.44 K/uL (0.00-0.50); Eosinophils % (auto) 5.6 %; Hematocrit (blood only) 42.9 % (37.0-47.0); Hemoglobin 13.9 g/dl (12.0-16.0); Immature Granulocytes # (auto) 0.04 K/uL (0.01-0.20); Immature Granulocytes % (auto) 0.5 %; Lymphocytes # (auto) 1.43 K/uL (1.20-3.40); Lymphocytes % (auto) 18.2 %; Mean Corpuscular Hemoglobin 31.3 pg (25.0-34.0); Mean Corpuscular Hgb Conc 32.4 g/dL (32.0-36.0); Mean Corpuscular Volume 96.6 fL (80.0-100.0); Mean Platelet Volume 9.8 fL (9.4-12.4); Monocytes # (auto) 0.77 K/uL (0.11-0.59); Monocytes % (auto) 9.8 %; Neutrophils # (auto) 5.11 K/uL (1.40-6.50); Neutrophils % (auto) 65.3 %; Platelet Count 277 K/uL (130-400); RDW Coefficient of Variation 13.3 % (11.5-14.5); Red Blood Count 4.44 M/uL (4.20-5.40); White Blood Count 7.84 K/ul (4.8-10.8)
[2023-03-13] MEDS: APIXABAN 5 MG TABLET PO SCH ×2 (08:48→20:34)
[2023-03-13] MEDS: ACETAMINOPHEN 325 MG TAB PO SCH ×4 (08:48→20:31)
[2023-03-13] MEDS: FLECAINIDE ACETATE 100 MG TABLET PO SCH ×2 (08:49→20:32)
[2023-03-13] MEDS: METOPROLOL SUCC 25MG EXT REL TAB PO SCH (08:50)
[2023-03-13] MEDS: TIMOLOL MALEATE 0.25% OP SOLN 5 ML BTL OP SCH ×2 (08:52→20:35)
[2023-03-13 09:18] LABS: Albumin Level 3.5 gm/dl (3.4-5.0); Bilirubin,Total 0.4 mg/dl (0.2-1.0); Calcium 9.7 mg/dl (8.6-10.3); Magnesium 2.1 mg/dl (1.7-2.4); Potassium 4.2 mmol/L (3.5-5.1)
[2023-03-13 09:24] LABS: Albumin Globulin Ratio 1.2 (0.9-2); BUN Creatinine Ratio 26.3 (10-20); Creatinine Clr Calc Pharmacy 83.7 ml/min; Est GFR (Non-African American) 84.5 ml/min; Globulin 2.9 gm/dl (2.5-4.0); Total Protein 6.4 gm/dl (6.0-8.3)
[2023-03-13] MEDS: POLYETHYLENE (MIRALAX) 17 GM PACK PO SCH ×2 (10:28→20:34)
--- NOTE | 2023-03-13 12:56 | Pulmonology Progress Note ---
Date of Service March 13, 2023 Assessment & Plan (1) Hydropneumothorax: (2) Left rib fracture: (3) Paroxysmal A-fib: (4) Abnormal chest CT: Plan CT chest 03/11/2023 personally reviewed: Left-sided moderate pneumothorax with fluid effusion atelectasis of the inferior lobe of the lingula Cardiomegaly No significant mediastinal lymphadenopathy -- Left hydropneumothorax Likely secondary to the fall and multiple rib fractures on the left side S/p pigtail catheter 03/11/2023 --Multiple left-sided rib fractures Pain management --A-fib On apixaban Plan: Chest x-ray from today does not show any signs of pneumothorax. I will clamp the chest tube as of now. Repeat a chest x-ray in 4 hours. If there is no chest signs of pneumothorax on the repeat chest x-ray then we will remove the chest tube Would recommend against doing any strenuous activity, lifting anything heavy for at least 2 weeks No flying in airplane or scuba diving for at least 6 weeks Case was discussed with Dr. Wiseman and RN Please note the above document was generated using voice recognition software. It may contain grammatical, syntax or spelling errors.Any formal questions or concerns about the content, text or information contained within the body of this dictation should be directly addressed to the provider for clarification. Admission and Anticipated Discharge Date Admission Date: March 11, 2023 Subjective Patient seen and examined at bedside. No acute distress, notable since overnight. Overall she says she is feeling much better Mild discomfort at the site of the fractures. Chest tube is not bothering her much Denies any coughing. No shortness of breath No nausea vomiting Fair appetite Review of Systems Review of Systems: All systems reviewed & are unremarkable except as noted in Subjective Physical Exam Physical Exam: Constitutional: No acute distress HEENT: EOMI, PERRLA Respiratory system: Decreased air entry on the left side, no wheeze, rhonchi, positive crackles CVS: S1-S2 positive, no murmurs or gallops Abdomen: Soft, nontender, nondistended, positive bowel sounds x4 Extremities: +2 pulses bilaterally radialis/ dorsalis pedis, no cyanosis, +1 edema bilateral lower extremity Neuro: Awake alert oriented x3 Psych: Normal mood and affect G/U: No Fenton Skin: no rashes, warm and dry Lymphatic: no cervical or axillary lymphadenopathy Results & Data Results & Data Vital Signs (Past 12 Hours) Vital Signs Temp Pulse Resp BP Pulse Ox O2 Del Method 03/13/23 08:04 36.4 C L 70 18 132/84 92 Room Air 03/13/23 03:01 36.6 C 64 16 112/74 91 Room Air PG Care Time/CCT Total # of Minutes Spent Total Time Spent with Patient: Total time spent is greater than 50% in coordination of care (as documented) at patient's floor/unit and/or counseling patient: Coding Level of Care Code 99443 SUB INP/OBS CARE 2/35MIN Diagnoses Hydropneumothorax J94.8 Left rib fracture S22.32XA Paroxysmal A-fib I48.[address] R93.89
--- NOTE | 2023-03-13 13:45 | XRay Report ---
SINGLE VIEW CHEST CLINICAL HISTORY: Pneumothorax status post clamping of the chest tube. FINDINGS: 2 AP, portable, upright chest radiographs are compared to study performed earlier the same date 03/13/2023 and correlated with chest CT dated 03/12/2023. The examination is mildly degraded by po rtable technique and patient rotation. The patient's head partially obscures the apices. The heart is enlarged noting atherosclerotic calcification of the thoracic aorta. The pulmonary vasculature is no ncongested. Chronic interstitial thickening is similar to previous. There is elevation of the right h emidiaphragm. A chest tube at the left lung base is unchanged in position. No residual pneumothorax i s clearly seen. No large pleural effusion is identified. There are residual left basilar opacities. T he skeletal structures are osteopenic. Acute appearing left-sided rib fractures are again noted. IMPRESSION: 1. A left-sided chest tube has is unchanged in position. No residual pneumothorax is clearly identifi ed. 2. Acute appearing left-sided rib fractures are again noted. 3. Cardiomegaly without radiographic evidence of congestive failure. ACT 112: Negative or not required by law. Electronically signed by: Jacob White M.D. 03/13/2023 1:44 PM
--- NOTE | 2023-03-13 16:35 | Procedure Note ---
Procedure Note Date of Service March 13, 2023 Note Procedure: Pigtail chest tube removal Medical Cost Consultant: Dr. Bennett Sandoval Indication: Resolution of pleural effusion or pneumothorax Consent: Verbal consent obtained Anesthesia: None Procedure: After taking the dressing off the catheter, under aseptic and sterile precautions pigtail catheter thread was unwound. The catheter was removed on examination and it was found to be intact. Vaseline gauze was applied along with 4 x 4 gauze and silk tape Complications: None Blood loss: None Coding CPT Codes Pulmonary/Thoracic - Pulmonary and Thoracic: 84751 Remove lung catheter ([id number]) [facility] [place] Procedure Codes (Charges) Pulmonary/Thoracic Procedure 1: Pulmonary and Thoracic: 14336 Remove lung catheter
--- NOTE | 2023-03-13 17:35 | Hospitalist Progress Note ---
Date of Service March 13, 2023 Assessment & Plan (1) Hemopneumothorax, left: Plan: -Admit to med/tele on continuous pulse oximetry -Currently hemodynamically stable and stable on RA -Came to the ED for acute, left-sided chest pain which woke her up from sleep this am -CTA of the chest showed left apical pneumothorax and left hydropneumothorax, as-well-as acute to subacute and mildly displaced fractures of the left posterolateral 4th through 6th ribs and nondisplaced fractures of the left posterior 4th and 5th ribs -Pulmonology was consulted and has placed a left-sided chest tube; repeat chest xray shows improving left effusion and stable left pneumothorax -Chest tube is currently set to 20 mmhg with approximately 500 cc of bloody drainage -Will give patient a dose of codeine cough syrup now as she is in pain and coughing, if it helps her cough will scheduled -Will give 1000 mg PO Acetaminophen now -Will start prn IV morphine for severe pain and tylenol for mild pain/fever -Q1H incentive spirometry -Hold Eliquis and chemical DVT PPX for now; BL WENDY's for DVT PPX for now -DMII diet -Pain appears controlled on 03/12, patient breathing well. Patient has no new complaints. Plan is to remove chest tube this evening. Will monitor. Patient may require IV morphine due to her pain. (2) Left rib fracture: Plan: -Sustained during her fall in [place] -Continue to monitor for new or worsening pain/SOB -Pain control per Hemopneumothorax plan Patient may need IV morphine overnight on 03/13 (3) Hypertension: Plan: -Stable -Conitnue to monitor (4) Paroxysmal A-fib: Plan: -Currently in NSR -Will give am doses of Flecainide and metoprolol on admission -Continue flecanide and metoprolol -Hold eliquis for now, Pulmonology is in agreement Admission and Anticipated Discharge Date Admission Date: March 11, 2023 Subjective 87 yo female reports no new symptoms. Patient with chest pain at tube site. Review of Systems Review of Systems: All systems reviewed & are unremarkable except as noted in HPI & below Physical Exam Physical Exam: General: In no acute distress, stated age, well-nourished, good hygiene, non-toxic appearing HEENT: Normocephalic, atraumatic, no scleral icterus, pupils around round, symmetrical, and reactive to light, moist mucus membranes, trachea midline, no thyromegaly Chest/Pulm: Chest tube is currently in place in the left chest \ Cardiac: RRR, no murmurs noted Results & Data Results & Data Vital Signs (Past 12 Hours) Vital Signs Temp Pulse Pulse Resp BP BP Pulse Ox 03/13/23 17:12 36.3 C L 71 18 136/76 96 03/13/23 16:20 36.7 C 69 18 116/74 94 03/13/23 15:53 66 03/13/23 13:34 63 03/13/23 08:04 36.4 C L 70 18 132/84 92 O2 Del Method 03/13/23 17:12 Room Air 03/13/23 16:20 Room Air 03/13/23 15:53 03/13/23 13:34 03/13/23 08:04 Room Air PG Care Time/CCT Total # of Minutes Spent Total Time Spent with Patient: Total time spent is greater than 50% in coordination of care (as documented) at patient's floor/unit and/or counseling patient: Coding Level of Care Code 05964 SUB INP/OBS CARE 2/35MIN Diagnoses Hemopneumothorax, left J94.2 Left rib fracture S22.32XA Hypertension I10 Paroxysmal A-fib I48.0
[2023-03-14] MEDS: guaiFENesin/CODEINE 100MG/10MG 5ML UDC PO SCH ×2 (06:05→12:39)
[2023-03-14 07:13] LABS: Basophils # (auto) 0.03 K/uL (0.00-0.20); Basophils % (auto) 0.4 %; Eosinophils # (auto) 0.36 K/uL (0.00-0.50); Eosinophils % (auto) 5.3 %; Hematocrit (blood only) 42.5 % (37.0-47.0); Hemoglobin 13.9 g/dl (12.0-16.0); Immature Granulocytes # (auto) 0.02 K/uL (0.01-0.20); Immature Granulocytes % (auto) 0.3 %; Lymphocytes # (auto) 1.24 K/uL (1.20-3.40); Lymphocytes % (auto) 18.2 %; Mean Corpuscular Hemoglobin 31.4 pg (25.0-34.0); Mean Corpuscular Hgb Conc 32.7 g/dL (32.0-36.0); Mean Corpuscular Volume 95.9 fL (80.0-100.0); Mean Platelet Volume 9.7 fL (9.4-12.4); Monocytes # (auto) 0.66 K/uL (0.11-0.59); Monocytes % (auto) 9.7 %; Neutrophils # (auto) 4.52 K/uL (1.40-6.50); Neutrophils % (auto) 66.1 %; Platelet Count 259 K/uL (130-400); RDW Coefficient of Variation 13.4 % (11.5-14.5); RDW Standard Deviation 47.5 fL (36.4-46.3); Red Blood Count 4.43 M/uL (4.20-5.40); White Blood Count 6.83 K/ul (4.8-10.8)
--- NOTE | 2023-03-14 07:20 | XRay Report ---
XR chest 1V portable HISTORY: 87 years-old Female f/u acute shortness of breath COMPARISON: 03/13/2023 TECHNIQUE: AP view of the chest FINDINGS: Cardiomediastinal and hilar silhouettes are within normal limits. Eventration of the right hemidiaphr agm. No pneumothorax, pleural effusion, airspace consolidation or pulmonary edema. Bones appear gross ly intact. Mild chronic interstitial coarsening. Status post removal of the previously noted left-silvio ed chest tube. Left-sided rib fractures are again noted. IMPRESSION: 1. Status post removal of a left-sided chest tube. No residual pneumothorax. 2. Left-sided rib fractures are again noted. ACT 112: Negative or not required by law. The above report was generated using voice recognition software. It may contain grammatical, syntax o r spelling errors. Electronically signed by: Rod Simpson M.D. 03/14/2023 7:19 AM
[2023-03-14 07:34] LABS: Albumin Globulin Ratio 1.2 (0.9-2); Albumin Level 3.4 gm/dl (3.4-5.0); BUN Creatinine Ratio 30.5 (10-20); Bilirubin,Total 0.4 mg/dl (0.2-1.0); Calcium 9.6 mg/dl (8.6-10.3); Creatinine Clr Calc Pharmacy 80.9 ml/min; Est GFR (African American) 96.9 ml/min; Est GFR (Non-African American) 83.6 ml/min; Globulin 2.9 gm/dl (2.5-4.0); Magnesium 2.1 mg/dl (1.7-2.4); Potassium 4.2 mmol/L (3.5-5.1); Total Protein 6.3 gm/dl (6.0-8.3)
[2023-03-14 07:49] LABS: INR 1.1 (0.9-1.1); Prothrombin Time 11.6 Seconds (9.0-12.0)
[2023-03-14] MEDS: METOPROLOL SUCC 25MG EXT REL TAB PO SCH (08:07)
[2023-03-14] MEDS: FLECAINIDE ACETATE 100 MG TABLET PO SCH (08:07)
[2023-03-14] MEDS: APIXABAN 5 MG TABLET PO SCH (08:07)
[2023-03-14] MEDS: POLYETHYLENE (MIRALAX) 17 GM PACK PO SCH (08:07)
[2023-03-14] MEDS: ACETAMINOPHEN 325 MG TAB PO SCH ×2 (08:07→12:40)
[2023-03-14] MEDS: TIMOLOL MALEATE 0.25% OP SOLN 5 ML BTL OP SCH (10:47)
[2023-03-14] MEDS ORDERED: LIDOCAINE 5% 1 PATCH TD ONE (12:00)
--- NOTE | 2023-03-14 12:06 | Discharge Summary ---
Date of Service March 14, 2023 Admission HPI Per Admitting Provider Stella is an 87 year old female with a PMH significant for Paroxysmal afib on Eliquis, glaucoma, and cerebral atherosclerosis who presented to the [facility] ED on 03/11 with complaints of left chest pain this am. The patient recent traveled to [place] last month and sustained a fall while going on a walking tour. She was evaluated at a local hospital in [place] and was told she did not have fractures or that she had any problems with her heart. She was given an Mauritanian equivalent of Ibuprofen for pain. In the ED today she remained stable. Labs including CBC, CMP, and high sen trop were unremarkable. CT of the head was negative. Chest xray showed left sided rib fractures with moderate left apical pneumothorax and left pleural effusion. CTA of the chest was read as ". Acute to subacute left- sided rib fractures as above. Note that 2 ribs are fractured at 2 sites. Moderate to large left hydropneumothorax. Foci of clustered nodularity are seen in the right lung. These may be inflammatory. A 3-4 month follow-up chest CT is recommended for reassessment.". Pulmonology was consulted and placed a left- sided chest tube. Prior to admission the patient was given no medications. At the time of the exam the patient was sitting in bed in no acute distress. She is currently stable on RA and has pain at the chest tube insertion site with deep inspiration. She confirms her recent travel and trauma. She woke up this am with increased left-sided chest pain, prompting her to come to the ED. She felt herself in afib upon waking and took a dose of her Flecainide prior to arrival; otherwise she did not have any of her other medications today. Her last dose of Eliquis was last night. She has no other complaints besides the left sided chest pain. She is a full code and her children are her POA. Principal Diagnosis pneumothorax Discharge Exam General: In no acute distress, stated age, well-nourished, good hygiene, non-toxic appearing HEENT: Normocephalic, atraumatic, no scleral icterus, pupils around round, symmetrical, and reactive to light, moist mucus membranes, trachea midline, no thyromegaly Chest/Pulm: CTA B/L Cardiac: RRR, no murmurs noted Discharge Data Allergies Allergy/AdvReac Type Severity Reaction Status Date / Time bacitracin Allergy Unknown RASH Verified 03/07/23 11:01 neomycin Allergy Unknown RASH Verified 03/07/23 11:01 polymyxin B Allergy Unknown RASH Verified 03/07/23 11:01 Consultations 03/11/23 11:41 ED Decision to Admit Stat 03/12/23 13:30 Consult Pulmonology Routine Ordered Studies 03/11/23 08:37 CT angio chest PE protocol Stat 03/11/23 08:43 CT head/brain wo con Stat 03/11/23 10:14 US point of care ultrasound Urgent Hospital Course (1) Hemopneumothorax, left: Traumatic hemopneumothorax -Admit to med/tele on continuous pulse oximetry -Currently hemodynamically stable and stable on RA -Came to the ED for acute, left-sided chest pain which woke her up from sleep this am -CTA of the chest showed left apical pneumothorax and left hydropneumothorax, as-well-as acute to subacute and mildly displaced fractures of the left posterolateral 4th through 6th ribs and nondisplaced fractures of the left posterior 4th and 5th ribs -Pulmonology was consulted and has placed a left-sided chest tube; repeat chest xray shows improving left effusion and stable left pneumothorax -Chest tube is currently set to 20 mmhg with approximately 500 cc of bloody drainage -received codeine cough syrup while in the hospital. -Pain also treated with Tlenol -Will start prn IV morphine for severe pain and tylenol for mild pain/fever -Q1H incentive spirometry -Held Eliquis and chemical DVT PPX; BL WENDY's for DVT PPX for now -DMII diet -Pain appears controlled on 03/12, patient breathing well. Patient has no new complaints. On 03/13, chest tube removed Patient required IV pain meds overnight, Patient discharged on 03/14 (2) Left rib fracture: Age-related osteoporosis with current pathological fracture of L ribs -Sustained during her fall in [place] -Continue to monitor for new or worsening pain/SOB -Pain control per Hemopneumothorax plan (3) Hypertension: -Stable -Conitnue to monitor (4) Paroxysmal A-fib: -Currently in NSR -Will give am doses of Flecainide and metoprolol on admission -Continue flecanide and metoprolol -H3ld eliquis for procedure. ok to resume Total Time Total Time Spent Total Time Spent (In Minutes): 32 Discharge Plan Discharge Items Patient Disposition: Home - Self-Care Reason For Visit: LEFT HYDROPNEUMOTHORAX,LEFT RIB FRACTURES Discharge Diagnosis: left hydropneumothorax, left rib fracture Activity: Resume your previous activity Non-emergency contact: Primary Care Provider Call non-emergency contact if: you have any medication questions Follow-up/Referrals: Musa Guthrie MD [Primary Care Provider] - 03/21/23 11:15 am (APPOINTMENT WITH Aby PATINO PA-C IN [facility] OFFICE) Diet: Heart Healthy Addtl Attending Provider Instructions: recommend followup with PCP in 1-2 weeks. Would recommend against doing any strenuous activity, lifting anything heavy for at least 2 weeks No flying in airplane or scuba diving for at least 6 weeks Ok to shower. Do not get in a bath tub. Damp the area dry, do not pull on skin. Pending Studies at Discharge: No Stand-Alone Forms: My [facility] [employer], Smoking Cessation Medications and DC Order Prescriptions: New acetaminophen 325 mg Tablet 650 mg PO QID Qty: 120 0RF Continued cholecalciferol (vitamin D3) 1,000 unit capsule 1,000 units PO DAILY Rx Instructions: Patient states she takes as needed calcium carbonate-vitamin D3 [Calcium 500 With D] 500 mg(1,250mg) -400 unit tablet 1 tab PO DAILY Rx Instructions: Patient states she takes as needed. flecainide 50 mg tablet 50 mg PO BID Qty: 180 3RF Eliquis 5 mg tablet 5 mg PO BID Qty: 180 3RF metoprolol succinate [Toprol XL] 25 mg tablet extended release 24 hr 25 mg PO DAILY Qty: 90 3RF vitamin B complex [B Complex-Vitamin B12] Tablet See Rx Instructions .ROUTE .COMPLEX Rx Instructions: 1 tab PO "occasionally" PRN timolol 0.25 % drops 1 drp ophthalmic (eye) BID PreserVision AREDS-2 250-90-40-1 mg capsule 2 cap PO DAILY fluticasone propionate 50 mcg/actuation [place],Suspension 2 spray INTRANASAL DAILY PRN (Reason: Allergy Symptoms) Rx Instructions: administer into each nostril Discharge Orders: Discharge Order (Routine); Ordered 03/14/23 Ordered By: Laci Wiseman Admission Data Admit Date/Time: 03/11/23 11:48 Attending Provider: Laci Wiseman Admit Provider: Simon Montoya Primary Care Provider: Musa Guthrie Other Providers: Bennett Sandoval Other Interventions: Discharge Summary Assessment (RN) Last Done: 03/14/23 12:32 Coding Level of Care Code 15877 INP/OBS DISCH >30 MIN Diagnoses Hemopneumothorax, left J94.2 Left rib fracture S22.32XA Hypertension I10 Paroxysmal A-fib I48.0
--- NOTE | 2023-03-17 16:02 | Coding Query ---
To promote full compliance with coding requirements relating to patient care, physician participation is requested in all cases of head of geography uncertainty. Please assist us with the question(s) below: Coding Question(s): It was noted throughout the record that the patient has/is suspected to have osteoporosis. According to coding guidelines "a code for osteoporotic fracture, and not a traumatic fracture, should be used for any patient with known osteoporosis who suffers a fracture, even if the patient had a minor fall or trauma, if that fall or trauma would not usually break a normal, healthy bone." Please indicate below the type of fracture: Physician's Response(s): (x ) Osteoporotic fracture of Left Ribs ( ) Traumatic fracture of Left Ribs ( ) Other, please specify MTDD
--- NOTE | 2023-03-17 16:10 | Coding Query ---
CODING QUERY To promote full compliance with coding requirements relating to patient care, provider participation is requested in all cases of supervisor assembly and packing uncertainty. Please assist us with the question(s) below: Coding Question(s): Pulmonary Consultation and Pulmonary Progress Notes and the 03/11 Procedure Note document Left Hydropneumothorax and the Pulmonary Consultation documents the Left Hydropneumothorax as likely secondary to the fall and multiple fractures, however the H&P and Hospitalist Progress Notes and the Discharge Summary (currently in Draft status) document Hemopneumothorax, Left. It is not clear if there is both Left Hydropneumothorax and Left Hemopneumothorax, or if there was just one or the other. Please specify below in your clinical opinion: ( ) Both Left Hemopneumothorax and Left Hydropneumothorax. Please specify further: ( ) likely Traumatic ( ) likely Nontraumatic ( x ) Left Hydropneumothorax only. Please specify further: ( x) likely Traumatic ( ) likely Nontraumatic ( ) Left Hemopneumothorax only. Please specify further: ( ) likely Traumatic ( ) likely Nontraumatic Physician's Response(s): Thank you Rosalba Stern Principal Diagnosis: "that condition established after study, to be chiefly responsible for occasioning the admission of the patient to the hospital for care." Co-Existing Principal Diagnosis: "when two or more diagnoses equally meet the criteria for principal diagnosis as determined by the circumstances of admission, diagnostic work up, and/or therapy provided, and the Alphabetic Index, Tabular List, or another coding guideline does not provide sequencing direction, any one of the diagnoses may be sequenced first." "When the physician has documented what appears to be a current diagnosis in the body of the record, but has not included the diagnosis in the final diagnostic statement, the physician should be asked whether the diagnosis should be added." (Source Coding Clinic 2 QTR90. p3-4) NICO
== END 2023-03-14 13:14 | disposition home or self-care (01) | DRG 206 ==
LOC: ED 08:06 → SUATTDRO 11:48 → EDINP 11:48 → 2N 11:52

== ENCOUNTER 2025-05-01 15:23 | Inpatient (IN) ==
[2025-05-01] MEDS: ACETAMINOPHEN 325 MG TAB PO STA (15:39)
[2025-05-01] MEDS: MoRPHine SULFATE 2 MG/ML CARP IV STA ×2 (15:40→17:22)
[2025-05-01 15:52] LABS: Hematocrit (blood only) 41.1 % (37.0-47.0); Hemoglobin 13.5 g/dL (12.0-16.0); Immature Granulocytes # (auto) 0.06 K/uL (0.01-0.20); Immature Granulocytes % (auto) 0.7 %; Mean Corpuscular Hemoglobin 31.8 pg (25.0-34.0); Mean Corpuscular Volume 96.7 fL (80.0-100.0); Platelet Count 286 K/uL (130-400); RDW Standard Deviation 47.1 fL (36.4-46.3); Red Blood Count 4.25 M/uL (4.20-5.40); White Blood Count 9.10 K/ul (4.8-10.8)
--- NOTE | 2025-05-01 15:58 | Emergency Department Note ---
Impression & Plan Acute knee pain, Ambulatory dysfunction, Elevated blood sugar ED Provider Note NAME: ESTIVEN BLANCO AGE: 89 SEX: F : 1935 ARRIVES VIA: Ambulance INFORMANT: Patient, ED PROVIDER(S): Sukhi aHile DO CHIEF COMPLAINT:knee pain HPI: Patient is an 89-year-old female who presents to the ER for left knee pain. She notes that she was at PT this morning and doing knee exercises. She was also playing bocce. While she was doing her knee exercises she started feeling pain on the left lateral knee. Around 2:00 also she started having severe sharp stabbing pain in the knee and some swelling. Denies any fevers. No trauma. ADDITIONAL HISTORY OBTAINED: Per HPI Chronic Medical/Social Conditions Affecting Care: Per HPI PAST MEDICAL HISTORY:See Below PAST SURGICAL HISTORY:See Below FAMILY HISTORY:See Below SOCIAL HISTORY:See Below HOME MEDICATIONS:See Below ALLERGIES:See Below VITALS:See Below PHYSICAL EXAMINATION: GENERAL: Sitting up in bed, alert, well appearing, well nourished, no distress, non-toxic EYE EXAM: normal conjunctiva. PERRL and EOM's grossly intact. OROPHARYNX: no exudate, no erythema, lips, buccal mucosa, and tongue normal and mucous membranes are moist NECK: supple, no nuchal rigidity, no adenopathy, non-tender LUNGS: Clear to auscultation. Normal chest wall mechanics HEART: no murmurs, S1 normal and S2 normal ABDOMEN: abdomen soft, non-tender, normo-active bowel sounds, no masses, no rebound or guarding. SKIN: no rashes and no bruising UPPER EXTREMITIES: upper extremities are grossly normal. LOWER EXTREMITIES: No tenderness in the left hip with flexion extension internal rotation. Large effusion of the left knee. No surrounding erythema duration. Significant pain with flexion or extension more than 10 degrees. Knee is held in flexion at 20 degrees. DP and PT 2 out of 4. Gross station intact. Achilles is intact. No tenderness with plantar dorsiflexion of the foot. NEURO EXAM: Normal sensorium, cranial nerves II-XII grossly intact, normal speech, no gross weakness of arms, no gross weakness of legs. MEDICAL DECISION MAKING: Patient is AN 89-year-old female who presents ER for severe left knee pain. IV was established and blood work was obtained. Labs showed no significant leukocytosis or anemia. BMP with a slightly elevated glucose at 127. LFTs bilirubin were unremarkable. X-ray showed no acute fracture. Ultrasound shows no DVT. She does have a fair amount of swelling I do favor this likely secondary to the NOAC that she is on. There is no surrounding erythema or induration. I do not feel this consistent with infection. She was given IV morphine and Toradol. She was unable to ambulate. Discussed case with the hospitalist for further evaluation management treatment. Consults/Care Managements Discussions: Per MDM Triage Nursing notes reviewed. Limited review of prior medical records performed Vital Signs: reviewed and remarkable for HTN Differential diagnosis: Fracture, subluxation, dislocation, contusion, ligamentous injury, neurovascular, compartment syndrome, rhabdomyolysis, as well as other pathologies. ER treatment provided: See below Diagnostics interpreted by me include EKG and cardiac monitoring as listed below: -ECG: none -Laboratory studies:Interpreted by me as stated above in MDM and shown below. Imaging studies: Xrays: As interpreted by me: X-rays of left knee showed no acute fracture or dislocation CTs show: None Ultrasound shows no DVT Procedures:none Critical Care: None Past Med/Surg History Problem List (Updated 05/01/25 @ 20:09 by Sukhi Haile DO) Elevated blood sugar (Acute) Ambulatory dysfunction (Acute) Acute knee pain (Acute) Chronic anticoagulation Knee hemarthrosis, left Myofascial pain Protrusion of intervertebral disc of lumbosacral region Lumbar radiculopathy, right Right sacral radiculopathy Postmenopausal bleeding Allergic rhinitis with postnasal drip Chronic cough Right leg pain Vitamin D deficiency Multiple pulmonary nodules Abnormal chest CT Environmental allergies Hypertension B12 deficiency Healthcare maintenance Elevated glucose Paroxysmal A-fib Right hip pain Pessary maintenance Third degree uterine prolapse (Acute) Osteoporosis (Acute) Osteoarthritis of knee (Acute) Chronic anticoagulation (Acute) Cerebral atherosclerosis (Acute) Carotid artery plaque (Acute) Medical History Vaginal discharge, non-hemorrhagic Hydropneumothorax Left rib fracture Hemopneumothorax, left Anal pain Sebaceous cyst Bacterial sinusitis Sinus congestion Contusion Hematoma Low vitamin B12 level Cough SI (sacroiliac) joint inflammation Atrial fibrillation with rapid ventricular response Atrial fibrillation with RVR Surgical History H/O arthroscopy of knee H/O colonoscopy History of cataract surgery H/O oral surgery Family History Mother Cancer Dementia Squamous cell skin cancer, earlobe Brother Glaucoma Transient ischemic attack Adenocarcinoma of prostate Brother Glaucoma Retinal detachment Optic neuritis H/O hernia repair History of knee replacement Colon cancer Abdominal aortic aneurysm Hypertension Denies family history of Ovarian cancer Prostate cancer Myocardial infarction Breast cancer Social History Smoking Status: Never smoker Tobacco Type: Cigarettes Age Started Using Tobacco: 20; Age Quit Using Tobacco: 22; packs per day: 0; Cigarettes Per Day: 1-2 cigarettes a day; Second Hand Exposure: No; Do You Dip or Chew Tobacco: No; Hx Alcohol Use: Yes Alcohol type: beer, wine and hard liquor Hx Substance Use: No Preferred Language: Grenadian Communication Ability: Effective Visual Impairment: No Limitations Hearing Ability: Normal [employer] Required: No Beliefs That Will Affect Care: None marital status: / Current Living Situation: Personal Care Facility Current Living Situation Comment: [facility] current occupational status: retired current occupation: [employer] Feels Safe at Home: Yes Childhood Exposure to Second-Hand Smoke: Yes Dental Care, Regularly: Yes Physical Activity Frequency: 5-6 Times per Week Seatbelt Use: always Sunscreen Use: Yes Assistive Devices: Glasses Allergies Allergies Allergy/AdvReac Type Severity Reaction Status Date / Time bacitracin Allergy Unknown RASH Verified 04/18/25 10:07 neomycin Allergy Unknown RASH Verified 04/18/25 10:07 polymyxin B Allergy Unknown RASH Verified 04/18/25 10:07 Home Meds Home Medications Medication Instructions Recorded Confirmed calcium 500 mg (as 1 tab PO DAILY 09/18/18 05/01/25 carbonate)-vitamin D3 10 mcg (400 unit) tablet (Calcium 500 With D) cholecalciferol (vitamin D3) 25 1,000 units PO DAILY 09/18/18 05/01/25 mcg (1,000 unit) capsule vit C 250 mg-vit E 90 mg-zinc 40 2 cap PO DAILY 02/25/21 05/01/25 mg-copper 1 [id number] capsule (PreserVision AREDS-2) Vitamin B-12 1 tab PO DAILY 05/01/25 05/01/25 flecainide 50 mg tablet 50 mg PO BID 05/01/25 05/01/25 Previous Rx's Medication Instructions Recorded Flutter Valve #1 ea 08/08/24 apixaban 5 mg tablet (Eliquis) 5 mg PO BID #180 tabs 11/21/24 metoprolol succinate 25 mg 25 mg PO DAILY #90 tabs 01/08/25 tablet,extended release 24 hr (Toprol XL) Results & Data (ED) Vital Signs Vital Signs - 24 hr 05/01/25 15:24 05/01/25 15:30 05/01/25 15:37 Temperature 36.7 C Temperature Source Oral Pulse Rate 70 Pulse Rate [Finger] 63 Respiratory Rate 16 20 Respiratory Effort / Characteristics Non-Labored Spontaneous Non-Labored Spontaneous Respiratory Depth Normal Normal Respiratory Pattern Regular Regular Blood Pressure 162/93 H Blood Pressure [Left Arm] 162/93 H Blood Pressure Mean 116 Blood Pressure Mean [Left Arm] 116 Pulse Oximetry 95 96 97 Oxygen Delivery Method Room Air Room Air Room Air Sepsis Recent Fever Within 48 Hours No Sepsis New/Unexplained Change in Mental Status N/A Sepsis Action Taken by Nursing No Action Required 05/01/25 17:36 05/01/25 19:00 Temperature Temperature Source Pulse Rate Pulse Rate [Finger] 60 62 Respiratory Rate 20 18 Respiratory Effort / Characteristics Non-Labored Spontaneous Respiratory Depth Normal Respiratory Pattern Regular Blood Pressure Blood Pressure [Left Arm] 171/99 H 152/87 H Blood Pressure Mean Blood Pressure Mean [Left Arm] 123 108 Pulse Oximetry 97 98 Oxygen Delivery Method Room Air Sepsis Recent Fever Within 48 Hours Sepsis New/Unexplained Change in Mental Status Sepsis Action Taken by Nursing Laboratory Data 05/01/25 15:35 05/01/25 15:35 Lab Results 05/01/25 Range/Units 15:35 WBC 9.10 (4.8-10.8) K/ul RBC 4.25 (4.20-5.40) M/uL Hgb 13.5 (12.0-16.0) g/dL Hct 41.1 (37.0-47.0) % MCV 96.7 (80.0-100.0) fL MCH 31.8 (25.0-34.0) pg MCHC 32.8 (32.0-36.0) g/dL RDW Std Deviation 47.1 H (36.4-46.3) fL RDW Coeff of Juan Antonio 13.2 (11.5-14.5) % Plt Count 286 (130-400) K/uL MPV 9.5 (9.4-12.4) fL Immature Gran % (Auto) 0.7 % Neut % (Auto) 77.4 % Lymph % (Auto) 13.7 % [place] % (Auto) 7.3 % Eos % (Auto) 0.4 % Baso % (Auto) 0.5 % Neut # (Auto) 7.04 H (1.40-6.50) K/uL Lymph # (Auto) 1.25 (1.20-3.40) K/uL [place] # (Auto) 0.66 H (0.11-0.59) K/uL Eos # (Auto) 0.04 (0.00-0.50) K/uL Baso # (Auto) 0.05 (0.00-0.20) K/uL Immature Gran # (Auto) 0.06 (0.01-0.20) K/uL Sodium 136 (136-145) mmol/L Potassium 4.7 (3.5-5.1) mmol/L Chloride 103 (98-107) mmol/L Carbon Dioxide 28 (21-32) mmol/L Anion Gap 5 (3-11) BUN 22 (6-23) mg/dl Creatinine 0.70 (0.6-1.2) mg/dl Est Cr Clr Drug Dosing Not Reportable eGFR 83.65 BUN/Creatinine Ratio 31.4 H (10-20) Glucose 127 H (70-99(Fasting)) mg/dl Calcium 10.1 (8.6-10.3) mg/dl Total Bilirubin 0.4 (0.2-1.0) mg/dl AST 17 (13-39) U/L ALT 14 (7-52) U/L Alkaline Phosphatase 89 (34-104) U/L Total Protein 6.9 (6.0-8.3) gm/dl Albumin 3.7 (3.4-5.0) gm/dl Globulin 3.2 (2.5-4.0) gm/dl Albumin/Globulin Ratio 1.2 (0.9-2) Administered Medications Discontinued Medications Acetaminophen (Acetaminophen 325 Mg Tab) 650 mg PO NOW STA Stop: 05/01/25 15:33 Last Admin: 05/01/25 15:39 Dose: 650 mg Documented By: mason Ketorolac Tromethamine (Ketorolac Tromethamine 15 Mg/Ml Vial) 10 mg IV NOW ONE Stop: 05/01/25 17:10 Last Admin: 05/01/25 17:22 Dose: 10 mg Documented By: CARLA Morphine Sulfate (Morphine Sulfate 2 Mg/Ml Carp) 2 mg IV NOW STA Stop: 05/01/25 15:33 Last Admin: 05/01/25 15:40 Dose: 2 mg Documented By: mason Morphine Sulfate (Morphine Sulfate 2 Mg/Ml Carp) 2 mg IV NOW STA Stop: 05/01/25 17:07 Last Admin: 05/01/25 17:22 Dose: 2 mg Documented By: CARLA Imaging Data Radiologist's Impression: Knee X-Ray 05/01/25 15:30 XR knee LT 3V CLINICAL HISTORY: l knee pain COMPARISON: None FINDINGS: Left knee prosthesis shows no hardware complication. No fracture or dislocation seen. There is a large suprapatellar joint effusion. IMPRESSION: No fracture seen. ACT 112: Negative or not required by law. Electronically signed by: Asael Pierre M.D. 05/01/2025 3:58 PM Venous Doppler Study 05/01/25 15:32 Clinical History: Pain Technique: Venous ultrasound evaluation was performed utilizing grayscale, color Doppler and wave form evaluation. Images were also obtained with and without compression Findings: The left common femoral, superficial femoral, popliteal, and visualized calf veins demonstrate normal anechoic lumens with full compressibility. Normal flow is seen on color Doppler images. Expected waveforms were produced with augmentation maneuvers Impression: No evidence of left leg deep venous thrombosis Electronically signed by Luis Mosquera 05-01-2025 5:05 PM Discharge Plan Visit Data Chief Complaint: Knee Injury/Pain ED Provider: Sukhi Haile Discharge Problem: Acute knee pain, Ambulatory dysfunction, Elevated blood sugar Condition: Fair Forms Stand Alone Forms: My [employer] Prescriptions Prescriptions: No Action cholecalciferol (vitamin D3) 1,000 unit capsule 1,000 units PO DAILY Patient Comments: 02/04- otc unable to verify Rx Instructions: Patient states she takes as needed calcium carbonate-vitamin D3 [Calcium 500 With D] 500 mg(1,250mg) -400 unit tablet 1 tab PO DAILY Patient Comments: 02/04- otc unable to verify Rx Instructions: Patient states she takes as needed. Eliquis 5 mg tablet 5 mg PO BID Qty: 180 3RF PreserVision AREDS-2 250-90-40-1 mg capsule 2 cap PO DAILY Patient Comments: 02/04- otc unable to verify metoprolol succinate [Toprol XL] 25 mg tablet extended release 24 hr 25 mg PO DAILY Qty: 90 3RF (DME) Flutter Valve Device See Rx Instructions .MEDSUPPLY Qty: 1 0RF Rx Instructions: Use it every 6 hours when awake. Vitamin B-12 1 tab PO DAILY flecainide 50 mg tablet 50 mg PO BID Rx Instructions: Take 1 tablet by mouth twice daily Referrals Referrals: Musa Guthrie MD [Primary Care Provider] - Discharge Problem: Acute knee pain Qualifiers: Laterality: unspecified laterality Qualified Code(s): M25.569 - Pain in unspecified knee
[2025-05-01 16:10] LABS: Alanine Aminotransferase 14 U/L (7-52); Albumin Globulin Ratio 1.2 (0.9-2); Albumin Level 3.7 gm/dl (3.4-5.0); Alkaline Phosphatase 89 U/L (34-104); Anion Gap 5 (3-11); Bilirubin,Total 0.4 mg/dl (0.2-1.0); Blood Urea Nitrogen 22 mg/dl (6-23); Calcium 10.1 mg/dl (8.6-10.3); Carbon Dioxide 28 mmol/L (21-32); Chloride 103 mmol/L (98-107); Globulin 3.2 gm/dl (2.5-4.0); Glucose 127 mg/dl (70-99(Fasting)); Potassium 4.7 mmol/L (3.5-5.1); Sodium 136 mmol/L (136-145); Total Protein 6.9 gm/dl (6.0-8.3)
--- NOTE | 2025-05-01 17:05 | Ultrasound Report ---
Clinical History: Pain Technique: Venous ultrasound evaluation was performed utilizing grayscale, color Doppler and wave form evaluation. Images were also obtained with and without compression Findings: The left common femoral, superficial femoral, popliteal, and visualized calf veins demonstrate normal anechoic lumens with full compressibility. Normal flow is seen on color Doppler images. Expected waveforms were produced with augmentation maneuvers Impression: No evidence of left leg deep venous thrombosis Electronically signed by Luis Mosqeura 05-01-2025 5:05 PM
[2025-05-01] MEDS: KETOROLAC TROMETHAMINE 15 MG/ML VIAL IV ONE (17:22)
--- NOTE | 2025-05-01 18:08 | History & Physical Report ---
Date of Service May 01, 2025 Assessment & Plan (1) Knee hemarthrosis, left: Plan: Suspected acute left knee hemarthrosis. Past history of left TKA 30 years ago. No acute injury. Left knee MRI scan is pending. Eliquis has been placed on hold. Orthopedic consultation requested. Pain control measures. (2) Chronic anticoagulation: Plan: Eliquis has been placed on hold. (3) Paroxysmal A-fib: Plan: She chronically takes flecainide and metoprolol along with Eliquis. Telemetry. She is currently in normal sinus rhythm (4) Hypertension: Plan: Stable. Continue metoprolol Plan To be determined History of Present Illness Chief Complaint: Sudden onset left knee pain and swelling Primary Care Provider: Musa Guthrie MD 89-year-old white female who developed sudden onset of left knee pain and swelling without injury. She takes Eliquis chronically due to paroxysmal atrial fibrillation. She has had previous left knee arthroplasty many years ago. More than likely she has left knee acute hemarthrosis. MRI scan is pending. Orthopedic consult will be requested. She requests DNR status. She is admitted for further evaluation and treatment Allergies Allergy/AdvReac Type Severity Reaction Status Date / Time bacitracin Allergy Unknown RASH Verified 04/18/25 10:07 neomycin Allergy Unknown RASH Verified 04/18/25 10:07 polymyxin B Allergy Unknown RASH Verified 04/18/25 10:07 Home Medications Medication Instructions Recorded Confirmed Type calcium 500 mg (as 1 tab PO DAILY 09/18/18 05/01/25 History carbonate)-vitamin D3 10 mcg (400 unit) tablet (Calcium 500 With D) cholecalciferol (vitamin D3) 25 1,000 units PO DAILY 09/18/18 05/01/25 History mcg (1,000 unit) capsule vit C 250 mg-vit E 90 mg-zinc 40 2 cap PO DAILY 02/25/21 05/01/25 History mg-copper 1 [id number] capsule (PreserVision AREDS-2) Flutter Valve #1 ea 08/08/24 04/29/25 Rx apixaban 5 mg tablet (Eliquis) 5 mg PO BID #180 tabs 11/21/24 05/01/25 Rx metoprolol succinate 25 mg 25 mg PO DAILY #90 tabs 08/05/25 11/26/25 Rx tablet,extended release 24 hr (Toprol XL) Vitamin B-12 1 tab PO DAILY 05/01/25 05/01/25 History flecainide 50 mg tablet 50 mg PO BID 05/01/25 05/01/25 History Past Med/Surg History Problem List (Updated 05/01/25 @ 18:07 by Jorge Hinojosa MD) Chronic anticoagulation Knee hemarthrosis, left Myofascial pain Protrusion of intervertebral disc of lumbosacral region Lumbar radiculopathy, right Right sacral radiculopathy Postmenopausal bleeding Allergic rhinitis with postnasal drip Chronic cough Right leg pain Vitamin D deficiency Multiple pulmonary nodules Abnormal chest CT Environmental allergies Hypertension B12 deficiency Healthcare maintenance Elevated glucose Paroxysmal A-fib Right hip pain Pessary maintenance Third degree uterine prolapse (Acute) Osteoporosis (Acute) Osteoarthritis of knee (Acute) Chronic anticoagulation (Acute) Cerebral atherosclerosis (Acute) Carotid artery plaque (Acute) Medical History Vaginal discharge, non-hemorrhagic Hydropneumothorax Left rib fracture Hemopneumothorax, left Anal pain Sebaceous cyst Bacterial sinusitis Sinus congestion Contusion Hematoma Low vitamin B12 level Cough SI (sacroiliac) joint inflammation Atrial fibrillation with rapid ventricular response Atrial fibrillation with RVR Surgical History H/O arthroscopy of knee H/O colonoscopy History of cataract surgery H/O oral surgery Family History Mother Cancer Dementia Squamous cell skin cancer, earlobe Brother Glaucoma Transient ischemic attack Adenocarcinoma of prostate Brother Glaucoma Retinal detachment Optic neuritis H/O hernia repair History of knee replacement Colon cancer Abdominal aortic aneurysm Hypertension Denies family history of Ovarian cancer Prostate cancer Myocardial infarction Breast cancer Social History Smoking Status: Never smoker Tobacco Type: Cigarettes Age Started Using Tobacco: 20; Age Quit Using Tobacco: 22; packs per day: 0; Cigarettes Per Day: 1-2 cigarettes a day; Second Hand Exposure: No; Do You Dip or Chew Tobacco: No; Hx Alcohol Use: Yes Alcohol type: beer, wine and hard liquor Hx Substance Use: No Preferred Language: [place]ian Communication Ability: Effective Visual Impairment: No Limitations Hearing Ability: Normal Quoter Required: No Beliefs That Will Affect Care: None marital status: / Current Living Situation: Personal Care Facility Current Living Situation Comment: [facility] current occupational status: retired current occupation: [employer] Feels Safe at Home: Yes Childhood Exposure to Second-Hand Smoke: Yes Dental Care, Regularly: Yes Physical Activity Frequency: 5-6 Times per Week Seatbelt Use: always Sunscreen Use: Yes Assistive Devices: Glasses Review of Systems 2 Review of Systems: Constitutionalno fever or chills ENTno blurred vision, no double vision, no epistaxis, no sore throat Respiratoryno cough, no wheezing, no shortness of breath Cardiacno palpitations, no chest pain, no syncope Fior nausea, vomiting, diarrhea, melena, hematochezia GUno urinary retention, no urinary incontinence, no dysuria, no hematuria Musculoskeletalacute onset of left knee pain and swelling. No muscle tenderness Skinno bruising, no rashes, no pruritus Neurono isolated weakness, no paresthesia, no weakness Psychno depression, no anxiety Physical Exam 2 Physical Exam: General-alert and oriented x3, no fever, no chills HEENT-head atraumatic and normocephalic, pupils equal and reactive to light, extraocular muscles intact Neck-no lymphadenopathy or thyromegaly, trachea midline Chest-clear to auscultation. No rales, wheezing or rhonchi Cardiac-regular rate and rhythm, normal S1 and S2 Abdomen-normal bowel sounds, no hepatosplenomegaly Extremities-left knee is enlarged compared to right knee. No erythema or signs of wounds or infection. Limited range of motion due to pain. No peripheral edema seen Neuro-cranial nerves II through XII intact, motor and sensory function within normal limits, strength symmetrical, no focal deficits Psych-normal affect, normal mood Results & Data Results & Data Vital Signs (Past 12 Hours) Vital Signs Temp Pulse Pulse Resp BP BP Pulse Ox 05/01/25 17:36 60 20 171/99 H 97 05/01/25 15:37 63 20 162/93 H 97 05/01/25 15:30 96 05/01/25 15:24 36.7 C 70 16 162/93 H 95 O2 Del Method 05/01/25 17:36 Room Air 05/01/25 15:37 Room Air 05/01/25 15:30 Room Air 05/01/25 15:24 Room Air Laboratory Results 05/01/25 15:35 05/01/25 15:35 Code Status & VTE Plan Code Status DNR/DNI PG Care Time/CCT Total # of Minutes Spent Total Time Spent with Patient: Total time spent is greater than 50% in coordination of care (as documented) at patient's floor/unit and/or counseling patient: Coding Level of Care Code 73860 INT INP/OBS CARE 2/55MIN Diagnoses Knee hemarthrosis, left M25.062 Chronic anticoagulation Z79.01 Paroxysmal A-fib I48.0 Hypertension I10
[2025-05-01] MEDS ORDERED: ONDANSETRON INJ 2 MG/ML 2 ML VIAL IV PRN (21:06)
[2025-05-01] MEDS: FLECAINIDE ACETATE 100 MG TABLET PO SCH (21:59)
[2025-05-01] MEDS: Patient's HEIGHT &/or WEIGHT Needed STA (21:59)
[2025-05-01] MEDS: MoRPHine SULFATE 2 MG/ML CARP IV PRN (22:09)
[2025-05-02] MEDS: LIDOCAINE 5% 1 PATCH TD STA (00:51)
--- NOTE | 2025-05-02 06:21 | CT Scan Report ---
EXAM: CT knee LT wo con CLINICAL HISTORY: suspected left hemarthrosis; TECHNIQUE: Contiguous axial CT images of left knee were obtained without intravenous contrast. Coronal and sagittal reconstructions were likewise performed and indicated to increase the sensitivity for detecting clinically relevant pathology. CT scan was performed according to ALARA (as low as reasonably achievable). COMPARISON: None. FINDINGS: Left total knee replacement status. No obvious loosening/fracture of orthopedic metallic hardware. Moderate hemarthrosis with suprapatellar extension is seen. No acute fracture or dislocation. No destructive osseous lesion. No cortical destruction to suggest osteomyelitis. Skin thickening in anterior aspect of knee joint. IMPRESSION: Left total knee replacement status. No obvious loosening/fracture of orthopedic metallic hardware. Moderate hemarthrosis with suprapatellar extension is seen. Electronically signed by Malachi Trotetr 05-02-2025 06:20 AM
[2025-05-02 07:03] LABS: Hematocrit (blood only) 39.6 % (37.0-47.0); Hemoglobin 13.0 g/dL (12.0-16.0); Immature Granulocytes # (auto) 0.04 K/uL (0.01-0.20); Immature Granulocytes % (auto) 0.4 %; Mean Corpuscular Hemoglobin 31.6 pg (25.0-34.0); Mean Corpuscular Volume 96.4 fL (80.0-100.0); Platelet Count 257 K/uL (130-400); RDW Standard Deviation 45.8 fL (36.4-46.3); Red Blood Count 4.11 M/uL (4.20-5.40); White Blood Count 9.22 K/ul (4.8-10.8)
[2025-05-02] MEDS: METOPROLOL SUCC 25MG EXT REL TAB PO SCH (07:43)
[2025-05-02] MEDS: CALCIUM 600MG + VIT D 400 IU TAB PO SCH ×2 (07:43→20:57)
[2025-05-02] MEDS: CYANOCOBALAMIN (B-12) 500 MCG TABLET PO SCH (07:45)
[2025-05-02 07:47] LABS: Anion Gap 6.0 (3-11); Blood Urea Nitrogen 16.0 mg/dl (6-23); Calcium 9.6 mg/dl (8.6-10.3); Carbon Dioxide 29.0 mmol/L (21-32); Chloride 105.0 mmol/L (98-107); Creatinine Clr Calc Pharmacy 68.8 ml/min; Glucose 87.0 mg/dl (70-99(Fasting)); Potassium 4.0 mmol/L (3.5-5.1); Sodium 140.0 mmol/L (136-145)
[2025-05-02] MEDS: CEROVITE ADV FORMULA TAB PO SCH (07:47)
--- NOTE | 2025-05-02 08:12 | Orthopedic Consultation ---
Date of Service May 02, 2025 Assessment & Plan (1) Knee hemarthrosis, left: 89-year-old female 12+ years out from a total knee replacement with acute hemarthrosis on chronic anticoagulation. There is not appear to be any major or trauma. She has had no fall. X-rays look okay please get some chronic fra gmentation of the patella but that looks chronic. She does have a hemarthrosis which I think is limiting her ability to lift her leg and for her leg to function. Plan will go to aspirate her right knee today. Put a compression dressing on it. Use ice for the next 24 hours. I would hold her anticoagulation May for 2 days if possible. Recommend we limit mobilization today and let her start the recovering tomorrow and hopefully maybe even discharge tomorrow if she is doing okay. Procedure: The patient's knee was prepped with Hibiclens. I then aspirated the knee for about 75 cc of just directly blood. After aspiration she can do a straight leg raise. There were no palpable defects. She is neurologically intact. A compressive dressing was applied. The patient tolerated procedure we ll and no complications. (2) Status post left knee replacement: (3) Ambulatory dysfunction: (4) Chronic anticoagulation: History of Present Illness Reason for Consultation: . Left knee pain and swelling status post total knee replacement 12 years ago. Requesting Physician: . Attending Physician: Nnamdi Espinoza MD . Patient is a very pleasant 89-year-old female now about 12+ years out from her total knee replacement by Dr. Mendez. Her knees were fine and not had any problems at all. She is on chronic Eliquis for atrial fibrillation. Yesterday her she developed acute onset of pain in her left knee swelling and ambulatory dysfunction. She has a no known injury. There was no fall. She was after breakfast with her son and then was playing some [employer] ball shortly before all this started. Once again there is no fall. She presents for evaluation. Has not been ill. No fevers. They have held her Eliquis. Allergies Allergy/AdvReac Type Severity Reaction Status Date / Time bacitracin Allergy Unknown RASH Verified 04/18/25 10:07 neomycin Allergy Unknown RASH Verified 04/18/25 10:07 polymyxin B Allergy Unknown RASH Verified 04/18/25 10:07 Home Medications Medication Instructions Recorded Confirmed Type calcium 500 mg (as 1 tab PO DAILY 09/18/18 05/01/25 History carbonate)-vitamin D3 10 mcg (400 unit) tablet (Calcium 500 With D) cholecalciferol (vitamin D3) 25 1,000 units PO DAILY 09/18/18 05/01/25 History mcg (1,000 unit) capsule vit C 250 mg-vit E 90 mg-zinc 40 2 cap PO DAILY 02/25/21 05/01/25 History mg-copper 1 [id number] capsule (PreserVision AREDS-2) Flutter Valve #1 ea 08/08/24 04/29/25 Rx apixaban 5 mg tablet (Eliquis) 5 mg PO BID #180 tabs 11/21/24 05/01/25 Rx metoprolol succinate 25 mg 25 mg PO DAILY #90 tabs 01/08/25 05/01/25 Rx tablet,extended release 24 hr (Toprol XL) Vitamin B-12 1 tab PO DAILY 05/01/25 05/01/25 History flecainide 50 mg tablet 50 mg PO BID 05/01/25 05/01/25 History Past Med/Surg History Problem List Status post left knee replacement Elevated blood sugar (Acute) Ambulatory dysfunction (Acute) Acute knee pain (Acute) Chronic anticoagulation Knee hemarthrosis, left Myofascial pain Protrusion of intervertebral disc of lumbosacral region Lumbar radiculopathy, right Right sacral radiculopathy Postmenopausal bleeding Allergic rhinitis with postnasal drip Chronic cough Right leg pain Vitamin D deficiency Multiple pulmonary nodules Abnormal chest CT Environmental allergies Hypertension B12 deficiency Healthcare maintenance Elevated glucose Paroxysmal A-fib Right hip pain Pessary maintenance Third degree uterine prolapse (Acute) Osteoporosis (Acute) Osteoarthritis of knee (Acute) Chronic anticoagulation (Acute) Cerebral atherosclerosis (Acute) Carotid artery plaque (Acute) Medical History Vaginal discharge, non-hemorrhagic Hydropneumothorax Left rib fracture Hemopneumothorax, left Anal pain Sebaceous cyst Bacterial sinusitis Sinus congestion Contusion Hematoma Low vitamin B12 level Cough SI (sacroiliac) joint inflammation Atrial fibrillation with rapid ventricular response Atrial fibrillation with RVR Surgical History H/O arthroscopy of knee H/O colonoscopy History of cataract surgery H/O oral surgery Family History Mother Cancer Dementia Squamous cell skin cancer, earlobe Brother Glaucoma Transient ischemic attack Adenocarcinoma of prostate Brother Glaucoma Retinal detachment Optic neuritis H/O hernia repair History of knee replacement Colon cancer Abdominal aortic aneurysm Hypertension Denies family history of Ovarian cancer Prostate cancer Myocardial infarction Breast cancer Social History Smoking Status: Never smoker Tobacco Type: Cigarettes Age Started Using Tobacco: 20; Age Quit Using Tobacco: 22; packs per day: 0; Cigarettes Per Day: 1-2 cigarettes a day; Second Hand Exposure: No; Do You Dip or Chew Tobacco: No; Hx Alcohol Use: Yes Alcohol type: wine Hx Substance Use: No Preferred Language: Korean Communication Ability: Effective Visual Impairment: No Limitations Hearing Ability: Normal Machine Operator Assistant Required: No Beliefs That Will Affect Care: None marital status: / Current Living Situation: Alone [facility] current occupational status: retired current occupation: [employer] Feels Safe at Home: Yes Childhood Exposure to Second-Hand Smoke: Yes Dental Care, Regularly: Yes Physical Activity Frequency: 5-6 Times per Week Seatbelt Use: always Sunscreen Use: Yes Assistive Devices: Glasses Review of Systems All systems reviewed & are unremarkable except as noted in HPI & below. Physical Exam . Physical examination is a pleasant elderly female. She is lying in bed looks quite comfortable. Examination of the left knee reveals a well-healed incision. She holds it in slightly flexed position. She has difficulty doing a straight leg raise. There is diffuse swelling and a fairly large humeral arthrosis. There is no palpable defects. There is no varus or valgus instability. She has difficulty doing a straight leg raise. Results & Data Results & Data Laboratory Results . Diagnostic Findings . X-rays of the left knee were reviewed. Shows a Serrano & Nephew total knee arthroplasty. No signs of loosening or problems. No fracture. Large hemarthrosis. CT scan was also reviewed. It shows a similar hemarthrosis. There is maybe a little bit of fragmentation of the patella but this looks chronic. It is at the superior pole PG Care Time/CCT Total # of Minutes Spent Total Time Spent with Patient: Total time spent is greater than 50% in coordination of care (as documented) at patient's floor/unit and/or counseling patient: Coding Level of Care Code 48393 IN/OBS CONSULT LVL 4,60M Diagnoses Knee hemarthrosis, left M25.062 Status post left knee replacement Z96.652 Ambulatory dysfunction R26.2 Chronic anticoagulation Z79.01
--- NOTE | 2025-05-02 10:09 | Hospitalist Progress Note ---
Date of Service May 02, 2025 Assessment & Plan (1) Knee hemarthrosis, left: Plan: -s/p left knee joint aspiration by orthopedics this am -con't compressive dressing -pain control -PT (2) Chronic anticoagulation: Plan: Eliquis has been placed on hold. (3) Paroxysmal A-fib: Plan: She chronically takes flecainide and metoprolol along with Eliquis. Telemetry. She is currently in normal sinus rhythm (4) Hypertension: Plan: Stable. Continue metoprolol Plan To be determined Admission and Anticipated Discharge Date Admission Date: May 01, 2025 Subjective Pt had left knee aspiration this am by orthopedics. Review of Systems Review of Systems: Constitutionalno fever or chills ENTno blurred vision, no double vision, no epistaxis, no sore throat Respiratoryno cough, no wheezing, no shortness of breath Cardiacno palpitations, no chest pain, no syncope Fior nausea, vomiting, diarrhea, melena, hematochezia GUno urinary retention, no urinary incontinence, no dysuria, no hematuria Musculoskeletalacute onset of left knee pain and swelling. No muscle tenderness Skinno bruising, no rashes, no pruritus Neurono isolated weakness, no paresthesia, no weakness Psychno depression, no anxiety Physical Exam Physical Exam: GENERAL APPEARANCE NAD, activity normal for age, well developed/ well nourished, no cyanosis, pallor, or diaphoresis. EYES lids/conjunctiva normal. EARS/NOSE/THROAT Mucous membranes moist, nares normal, lips/teeth normal uvula midline without oral pharyngeal erythema, exudate or swelling TMs normal bilaterally. No lymphangitis/lymphedema. HEAD/NECK normocephalic atraumatic, no facial trauma, neck is supple. RESPIRATORY respiratory effort normal, speaks in full sentences, no tripod position, no accessory muscle use. Lungs clear to auscultation without rhonchi, wheezes, rales CARDIAC Regular rate and rhythm, no edema. ABDOMINAL Soft, ND/NT. No evidence of fluid wave. No pulsatile masses on exam, rebound tenderness, Montero sign or pain over Mcburney's point. MUSCLES/EXTREMITIES No abnormal range of motion, no swelling. SKIN Warm, pink and dry. No rashes, dermatoses, petechiae or lesions. NEUROLOGICAL Speech is clear and appropriate. Normal level of consciousness. Gait and coordination are normal. 5/5 strength in all extremities. PSYCH Normal mood and affect. Judgement/competence is appropriate Results & Data Results & Data Vital Signs (Past 12 Hours) Vital Signs Temp Pulse Pulse Resp BP Pulse Ox O2 Del Method 05/02/25 07:34 36.6 C 56 L 16 145/80 H 94 Room Air 05/02/25 07:21 54 L 05/02/25 04:00 36.6 C 57 L 18 130/79 92 Room Air 05/02/25 00:11 36.4 C L 55 L 18 115/72 94 Room Air 05/01/25 23:07 53 L PG Care Time/CCT Total # of Minutes Spent Total Time Spent with Patient: Total time spent is greater than 50% in coordination of care (as documented) at patient's floor/unit and/or counseling patient: Coding Level of Care Code 66505 SUB INP/OBS CARE 2/35MIN Diagnoses Knee hemarthrosis, left M25.062 Chronic anticoagulation Z79.01 Paroxysmal A-fib I48.0 Hypertension I10
[2025-05-02] MEDS: REMOVE LIDODERM PATCH SCH (12:44)
[2025-05-03 06:57] LABS: Hematocrit (blood only) 40.3 % (37.0-47.0); Hemoglobin 13.2 g/dL (12.0-16.0); Immature Granulocytes # (auto) 0.06 K/uL (0.01-0.20); Immature Granulocytes % (auto) 0.6 %; Mean Corpuscular Hemoglobin 31.6 pg (25.0-34.0); Mean Corpuscular Volume 96.4 fL (80.0-100.0); Platelet Count 249 K/uL (130-400); RDW Standard Deviation 46.5 fL (36.4-46.3); Red Blood Count 4.18 M/uL (4.20-5.40); White Blood Count 9.39 K/ul (4.8-10.8)
[2025-05-03 07:18] LABS: Anion Gap 5.0 (3-11); Blood Urea Nitrogen 21.0 mg/dl (6-23); Calcium 9.8 mg/dl (8.6-10.3); Carbon Dioxide 28.0 mmol/L (21-32); Chloride 106.0 mmol/L (98-107); Creatinine Clr Calc Pharmacy 69.9 ml/min; Glucose 90.0 mg/dl (70-99(Fasting)); Potassium 4.1 mmol/L (3.5-5.1); Sodium 139.0 mmol/L (136-145)
--- NOTE | 2025-05-03 09:38 | Hospitalist Progress Note ---
Date of Service May 03, 2025 Assessment & Plan (1) Knee hemarthrosis, left: Plan: -s/p left knee joint aspiration by orthopedics this am -con't compressive dressing -pain control -PT evaluation pending (2) Chronic anticoagulation: Plan: Eliquis has been placed on hold. (3) Paroxysmal A-fib: Plan: She chronically takes flecainide and metoprolol along with Eliquis. Telemetry. She is currently in normal sinus rhythm (4) Hypertension: Plan: Stable. Continue metoprolol Plan To be determined Admission and Anticipated Discharge Date Admission Date: May 01, 2025 Subjective No events overnight. Pt resting comfortably in bed. Review of Systems Review of Systems: Constitutionalno fever or chills ENTno blurred vision, no double vision, no epistaxis, no sore throat Respiratoryno cough, no wheezing, no shortness of breath Cardiacno palpitations, no chest pain, no syncope Fior nausea, vomiting, diarrhea, melena, hematochezia GUno urinary retention, no urinary incontinence, no dysuria, no hematuria Musculoskeletalacute onset of left knee pain and swelling. No muscle tenderness Skinno bruising, no rashes, no pruritus Neurono isolated weakness, no paresthesia, no weakness Psychno depression, no anxiety Physical Exam Physical Exam: GENERAL APPEARANCE NAD, activity normal for age, well developed/ well nourished, no cyanosis, pallor, or diaphoresis. EYES lids/conjunctiva normal. EARS/NOSE/THROAT Mucous membranes moist, nares normal, lips/teeth normal uvula midline without oral pharyngeal erythema, exudate or swelling TMs normal bilaterally. No lymphangitis/lymphedema. HEAD/NECK normocephalic atraumatic, no facial trauma, neck is supple. RESPIRATORY respiratory effort normal, speaks in full sentences, no tripod position, no accessory muscle use. Lungs clear to auscultation without rhonchi, wheezes, rales CARDIAC Regular rate and rhythm, no edema. ABDOMINAL Soft, ND/NT. No evidence of fluid wave. No pulsatile masses on exam, rebound tenderness, Montero sign or pain over Mcburney's point. MUSCLES/EXTREMITIES No abnormal range of motion, no swelling. Left knee wrapped. SKIN Warm, pink and dry. No rashes, dermatoses, petechiae or lesions. NEUROLOGICAL Speech is clear and appropriate. Normal level of consciousness. Gait and coordination are normal. 5/5 strength in all extremities. PSYCH Normal mood and affect. Judgement/competence is appropriate Results & Data Results & Data Vital Signs (Past 12 Hours) Vital Signs Temp Pulse Pulse Resp BP Pulse Ox O2 Del Method 05/03/25 08:05 36.7 C 65 20 119/72 92 Room Air 05/03/25 04:11 36.6 C 70 18 129/69 95 Room Air 05/03/25 00:05 36.8 C 71 16 137/82 90 Room Air 05/02/25 22:15 61 PG Care Time/CCT Total # of Minutes Spent Total Time Spent with Patient: Total time spent is greater than 50% in coordination of care (as documented) at patient's floor/unit and/or counseling patient: Coding Level of Care Code 92809 SUB INP/OBS CARE 2/35MIN Diagnoses Knee hemarthrosis, left M25.062 Chronic anticoagulation Z79.01 Paroxysmal A-fib I48.0 Hypertension I10
--- NOTE | 2025-05-03 10:53 | Orthopedic Progress Note ---
Date of Service May 03, 2025 Assessment & Plan (1) Knee hemarthrosis, left: Plan: Patient has not had a reaccumulation of the fluid in her knee. She can ice with an easy wrap Pain control with p.o. medication She would like to follow-up with Dr. Daley in about 2 weeks. Orthopedically she is cleared for discharge. She states she [facility] Admission and Anticipated Discharge Date Admission Date: May 01, 2025 Supervising Physician Co-Signing Physician Notes I, Dr. Garber, saw and examined the patient. I discussed the management with my PA. I reviewed my PAs note and agree with the documented findings and attest to completing the substantive portion of medical decision making and plan of care I developed. Subjective This 89-year-old female seen today for follow-up of a left knee hemarthrosis that was aspirated by Dr. Daley yesterday. She states that it feels much better today but she still has an achy sensation. She states she has been able to get up with the assistance of her walker and transition to the bathroom. She states that her Eliquis has been held due to blood in her knee. She wonders if she could resume it because she is on it for atrial fibrillation. Currently she denies chest pain, shortness of breath, fever, chills, sweats, nausea, vomiting, diarrhea or difficulty voiding. She has no complaint of numbness or tingling in her left lower extremity. Review of Systems Review of Systems: All systems reviewed & are unremarkable except as noted in Subjective Physical Exam Physical Exam: Physical examination: Patient has a trace effusion. Active knee range of motion is from 0 degrees of extension to 90 degrees of flexion. She does have a compressive wrap in place. She is able to perform an active straight leg raise test and actively dorsi and plantarflex her foot. Her peripheral pulses are 2+. Her quad strength is 4 out of 5. She is neurovascularly intact in the left lower extremity. Results & Data Vital Signs (Past 12 Hours) Vital Signs Temp Pulse Resp BP Pulse Ox O2 Del Method 05/03/25 08:05 36.7 C 65 20 119/72 92 Room Air 05/03/25 04:11 36.6 C 70 18 129/69 95 Room Air 05/03/25 00:05 36.8 C 71 16 137/82 90 Room Air Diagnostic Findings Laboratory Results WBC 9.39 K/ul (4.8-10.8) 05/03/25 06:22 RBC 4.18 M/uL (4.20-5.40) L 05/03/25 06:22 Hgb 13.2 g/dL (12.0-16.0) 05/03/25 06:22 Hct 40.3 % (37.0-47.0) 05/03/25 06:22 MCV 96.4 fL (80.0-100.0) 05/03/25 06:22 MCH 31.6 pg (25.0-34.0) 05/03/25 06:22 MCHC 32.8 g/dL (32.0-36.0) 05/03/25 06:22 RDW Std Deviation 46.5 fL (36.4-46.3) H 05/03/25 06:22 RDW Coeff of Juan Antonio 13.1 % (11.5-14.5) 05/03/25 06:22 Plt Count 249 K/uL (130-400) 05/03/25 06:22 MPV 9.7 fL (9.4-12.4) 05/03/25 06:22 Immature Gran % (Auto) 0.6 % 05/03/25 06:22 Neut % (Auto) 71.2 % 05/03/25 06:22 Lymph % (Auto) 15.5 % 05/03/25 06:22 [place] % (Auto) 11.2 % 05/03/25 06:22 Eos % (Auto) 1.2 % 05/03/25 06:22 Baso % (Auto) 0.3 % 05/03/25 06:22 Neut # (Auto) 6.68 K/uL (1.40-6.50) H 05/03/25 06:22 Lymph # (Auto) 1.46 K/uL (1.20-3.40) 05/03/25 06:22 [place] # (Auto) 1.05 K/uL (0.11-0.59) H 05/03/25 06:22 Eos # (Auto) 0.11 K/uL (0.00-0.50) 05/03/25 06:22 Baso # (Auto) 0.03 K/uL (0.00-0.20) 05/03/25 06:22 Immature Gran # (Auto) 0.06 K/uL (0.01-0.20) 05/03/25 06:22 Sodium 139 mmol/L (136-145) 05/03/25 06:22 Potassium 4.1 mmol/L (3.5-5.1) 05/03/25 06:22 Chloride 106 mmol/L (98-107) 05/03/25 06:22 Carbon Dioxide 28 mmol/L (21-32) 05/03/25 06:22 Anion Gap 5 (3-11) 05/03/25 06:22 BUN 21 mg/dl (6-23) 05/03/25 06:22 Creatinine 0.66 mg/dl (0.6-1.2) 05/03/25 06:22 Est Cr Clr Drug Dosing 69.9 ml/min 05/03/25 06:22 eGFR 84.85 05/03/25 06:22 BUN/Creatinine Ratio 31.8 (10-20) H 05/03/25 06:22 Glucose 90 mg/dl (70-99(Fasting)) 05/03/25 06:22 Calcium 9.8 mg/dl (8.6-10.3) 05/03/25 06:22 Total Bilirubin 0.4 mg/dl (0.2-1.0) 05/01/25 15:35 AST 17 U/L (13-39) 05/01/25 15:35 ALT 14 U/L (7-52) 05/01/25 15:35 Alkaline Phosphatase 89 U/L (34-104) 05/01/25 15:35 Total Protein 6.9 gm/dl (6.0-8.3) 05/01/25 15:35 Albumin 3.7 gm/dl (3.4-5.0) 05/01/25 15:35 Globulin 3.2 gm/dl (2.5-4.0) 05/01/25 15:35 Albumin/Globulin Ratio 1.2 (0.9-2) 05/01/25 15:35 Impressions Knee X-Ray 05/01/25 15:30 XR knee LT 3V CLINICAL HISTORY: l knee pain COMPARISON: None FINDINGS: Left knee prosthesis shows no hardware complication. No fracture or dislocation seen. There is a large suprapatellar joint effusion. IMPRESSION: No fracture seen. ACT 112: Negative or not required by law. Electronically signed by: Asael Pierre M.D. 05/01/2025 3:58 PM Venous Doppler Study 05/01/25 15:32 Clinical History: Pain Technique: Venous ultrasound evaluation was performed utilizing grayscale, color Doppler and wave form evaluation. Images were also obtained with and without compression Findings: The left common femoral, superficial femoral, popliteal, and visualized calf veins demonstrate normal anechoic lumens with full compressibility. Normal flow is seen on color Doppler images. Expected waveforms were produced with augmentation maneuvers Impression: No evidence of left leg deep venous thrombosis Electronically signed by Luis Mosquera 05-01-2025 5:[address] 05/01/25 21:34 EXAM: CT knee LT wo con CLINICAL HISTORY: suspected left hemarthrosis; TECHNIQUE: Contiguous axial CT images of left knee were obtained without intravenous contrast. Coronal and sagittal reconstructions were likewise performed and indicated to increase the sensitivity for detecting clinically relevant pathology. CT scan was performed according to ALARA (as low as reasonably achievable). COMPARISON: None. FINDINGS: Left total knee replacement status. No obvious loosening/fracture of orthopedic metallic hardware. Moderate hemarthrosis with suprapatellar extension is seen. No acute fracture or dislocation. No destructive osseous lesion. No cortical destruction to suggest osteomyelitis. Skin thickening in anterior aspect of knee joint. IMPRESSION: Left total knee replacement status. No obvious loosening/fracture of orthopedic metallic hardware. Moderate hemarthrosis with suprapatellar extension is seen. Electronically signed by Malachi Trotter 05-02-2025 06:20 AM
[2025-05-03] MEDS: ACETAMINOPHEN 325 MG TAB PO PRN (12:49)
[2025-05-03] MEDS: CELECOXIB 100 MG CAP PO SCH (21:10)
[2025-05-03] MEDS: POLYETHYLENE (MIRALAX) 17 GM PACK PO PRN (22:00)
[2025-05-04 07:03] LABS: Hematocrit (blood only) 38.3 % (37.0-47.0); Hemoglobin 12.3 g/dL (12.0-16.0); Immature Granulocytes # (auto) 0.09 K/uL (0.01-0.20); Immature Granulocytes % (auto) 0.8 %; Mean Corpuscular Hemoglobin 31.2 pg (25.0-34.0); Mean Corpuscular Volume 97.2 fL (80.0-100.0); Platelet Count 224 K/uL (130-400); RDW Standard Deviation 46.9 fL (36.4-46.3); Red Blood Count 3.94 M/uL (4.20-5.40); White Blood Count 10.81 K/ul (4.8-10.8)
[2025-05-04 07:33] LABS: Anion Gap 3.0 (3-11); Blood Urea Nitrogen 18.0 mg/dl (6-23); Calcium 9.6 mg/dl (8.6-10.3); Carbon Dioxide 31.0 mmol/L (21-32); Chloride 105.0 mmol/L (98-107); Creatinine Clr Calc Pharmacy 68.7 ml/min; Glucose 92.0 mg/dl (70-99(Fasting)); Potassium 4.3 mmol/L (3.5-5.1); Sodium 139.0 mmol/L (136-145)
--- NOTE | 2025-05-04 13:44 | Hospitalist Progress Note ---
Date of Service May 04, 2025 Assessment & Plan (1) Knee hemarthrosis, left: Plan: Developed acutely without trauma. Due to Eliquis therapy. She is status post aspiration of the left knee on May 02 per orthopedics. Remote history of left total knee arthroplasty. No current or recent trauma. Much improved overall. Eliquis remains on hold (2) Ambulatory dysfunction: Plan: Due to left knee pain. [facility] before she returns to her usual living arrangements (3) Hypertension: Plan: Stable. Continue current medical management (4) Paroxysmal A-fib: Plan: She is currently in normal sinus rhythm. Eliquis remains on hold. Continue current medical management Plan Anticipate eventual placement at the [facility] when arrangements are finalized. Hopefully within the next 2 to 3 days. Admission and Anticipated Discharge Date Admission Date: May 01, 2025 Subjective Alert and oriented. No distress. Awaiting eventual discharge to the [facility]. Eliquis remains on hold. She underwent left knee aspiration for the left knee hemarthrosis on May 02 by orthopedics. Review of Systems 2 Review of Systems: Constitutionalno fever or chills ENTno blurred vision, no double vision, no epistaxis, no sore throat Respiratoryno cough, no wheezing, no shortness of breath Cardiacno palpitations, no chest pain, no syncope Fior nausea, vomiting, diarrhea, melena, hematochezia GUno urinary retention, no urinary incontinence, no dysuria, no hematuria Musculoskeletalacute onset of left knee pain and swelling at the time of admission. No muscle tenderness Skinno bruising, no rashes, no pruritus Neurono isolated weakness, no paresthesia, no weakness Psychno depression, no anxiety Physical Exam 2 Physical Exam: General-alert and oriented x3, no fever, no chills HEENT-head atraumatic and normocephalic, pupils equal and reactive to light, extraocular muscles intact Neck-no lymphadenopathy or thyromegaly, trachea midline Chest-clear to auscultation. No rales, wheezing or rhonchi Cardiac-regular rate and rhythm, normal S1 and S2 Abdomen-normal bowel sounds, no hepatosplenomegaly Extremities-left knee size is now equal to that of the right. No erythema or signs of wounds or infection. No peripheral edema seen Neuro-cranial nerves II through XII intact, motor and sensory function within normal limits, strength symmetrical, no focal deficits Psych-normal affect, normal mood Results & Data Results & Data Vital Signs (Past 12 Hours) Vital Signs Temp Pulse Pulse Resp BP Pulse Ox O2 Del Method 05/04/25 11:27 36.4 C L 62 20 113/57 L 96 Room Air 05/04/25 08:25 36.5 C 67 20 125/66 94 Room Air 05/04/25 07:32 59 L 05/04/25 02:58 36.4 C L 67 18 114/71 94 Room Air Laboratory Results 05/04/25 06:39 05/04/25 06:39 PG Care Time/CCT Total # of Minutes Spent Total Time Spent with Patient: Total time spent is greater than 50% in coordination of care (as documented) at patient's floor/unit and/or counseling patient: Coding Level of Care Code 96207 SUB INP/OBS CARE 2/35MIN Diagnoses Knee hemarthrosis, left M25.062 Ambulatory dysfunction R26.2 Hypertension I10 Paroxysmal A-fib I48.0
--- NOTE | 2025-05-04 14:18 | Electrocardiogram Report ---
Test Reason : Blood Pressure : */* mmHG Vent. Rate : 65 BPM Atrial Rate : 65 BPM P-R Int : 190 ms QRS Dur : 96 ms QT Int : 424 ms P-R-T Axes : 64 -8 63 degrees QTcB Int : 440 ms Normal sinus rhythm Nonspecific T wave abnormality Abnormal ECG When compared with ECG of 11-Mar-2023 08:11, Minimal criteria for Anterior infarct are no longer Present Confirmed by Ab Abraham ([id number]) on 05/04/2025 2:18:09 PM Referred By: REFERRED SELF Confirmed By: Ab Abraham
--- NOTE | 2025-05-05 15:12 | Hospitalist Progress Note ---
Date of Service May 05, 2025 Assessment & Plan (1) Knee hemarthrosis, left: Plan: Developed acutely without trauma. Due to Eliquis therapy. She is status post aspiration of the left knee on May 02 per orthopedics. Remote history of left total knee arthroplasty. No current or recent trauma. Much improved overall. Simónis remains on hold (2) Ambulatory dysfunction: Plan: Due to left knee pain. She will temporarily go to [facility] before she returns to her usual living arrangements (3) Hypertension: Plan: Stable. Continue current medical management (4) Paroxysmal A-fib: Plan: She is currently in normal sinus rhythm. Brendaquis remains on hold. Continue current medical management Plan Anticipate eventual placement at the [facility] when arrangements are finalized. Hopefully within the next day or 2 Admission and Anticipated Discharge Date Admission Date: May 01, 2025 Subjective Alert and oriented. No distress. No new problems. Review of Systems 2 Review of Systems: Constitutionalno fever or chills ENTno blurred vision, no double vision, no epistaxis, no sore throat Respiratoryno cough, no wheezing, no shortness of breath Cardiacno palpitations, no chest pain, no syncope Fior nausea, vomiting, diarrhea, melena, hematochezia GUno urinary retention, no urinary incontinence, no dysuria, no hematuria Musculoskeletalacute onset of left knee pain and swelling at the time of admission. No muscle tenderness Skinno bruising, no rashes, no pruritus Neurono isolated weakness, no paresthesia, no weakness Psychno depression, no anxiety Physical Exam 2 Physical Exam: General-alert and oriented x3, no fever, no chills HEENT-head atraumatic and normocephalic, pupils equal and reactive to light, extraocular muscles intact Neck-no lymphadenopathy or thyromegaly, trachea midline Chest-clear to auscultation. No rales, wheezing or rhonchi Cardiac-regular rate and rhythm, normal S1 and S2 Abdomen-normal bowel sounds, no hepatosplenomegaly Extremities-left knee size is now equal to that of the right. No erythema or signs of wounds or infection. No peripheral edema seen Neuro-cranial nerves II through XII intact, motor and sensory function within normal limits, strength symmetrical, no focal deficits Psych-normal affect, normal mood Results & Data Results & Data Vital Signs (Past 12 Hours) Vital Signs Temp Pulse Pulse Resp BP Pulse Ox O2 Del Method 11/30/25 08:08 36.5 C 58 L 16 113/71 93 Room Air 05/05/25 07:18 60 Laboratory Results 05/04/25 06:39 05/04/25 06:39 PG Care Time/CCT Total # of Minutes Spent Total Time Spent with Patient: Total time spent is greater than 50% in coordination of care (as documented) at patient's floor/unit and/or counseling patient: Coding Level of Care Code 43352 SUB INP/OBS CARE 2/35MIN Diagnoses Knee hemarthrosis, left M25.062 Ambulatory dysfunction R26.2 Hypertension I10 Paroxysmal A-fib I48.0
[2025-05-05 19:30] VITALS: RESP 18
[2025-05-06 15:26] VITALS: PULSE 63; TEMP 97.8; O2SAT 96
--- NOTE | 2025-05-06 16:26 | Discharge Summary ---
Discharge Summary Date of Service May 06, 2025 Principal Dx & Hospital Course #1 = Principal Diagnosis (1) Knee hemarthrosis, left: Developed acutely without trauma, although she had been doing physical therapy and then played bocce ball within 24 hours of the occurrence. Likely due to minor trauma to a small vessel and being on anticoagulation sped up the hemorrhage. She is status post aspiration of the left knee on May 02 per orthopedics. Remote history of left total knee arthroplasty. Eliquis was placed on hold and will continue on hold until after seen by orthopedic surgery. She also discussed with her wood heel attacher about whether it is safe to resume Eliquis but I do believe she should at some point. Follow-up with orthopedic surgery Continue ice and compression Rolling walker provided at the time of discharge and she would like to do home PT/OT (2) Ambulatory dysfunction: (3) Paroxysmal A-fib: She remained in a normal sinus rhythm throughout her hospitalization and she is symptomatic whenever she has A-fib. She remains on flecainide for rhythm control and metoprolol for rate control Eliquis is on hold. Discussed with her the possibility of assessing her A-fib burden with a loop recorder or 30-day event monitor with cardiology to determine if she should continue on Eliquis. She is now fearful of future bleeding events. Follow-up with cardiology Plan Disposition-stable for discharge to home with home health Notes For Next Care Provider Medication Changes From Visit Hold Eliquis Admission HPI Per Admitting Provider 89-year-old white female who developed sudden onset of left knee pain and swelling without injury. She takes Eliquis chronically due to paroxysmal atrial fibrillation. She has had previous left knee arthroplasty many years ago. More than likely she has left knee acute hemarthrosis. MRI scan is pending. Orthopedic consult will be requested. She requests DNR status. She is admitted for further evaluation and treatment Discharge Exam Constitutional WD/WN, vitals as above Respiratory normal respiratory effort, lungs clear to auscultation Cardiovascular RRR, no murmur, no edema Gastrointestinal (Abdomen) normal bowel sounds, soft, nontender, no hepatosplenomegaly Musculoskeletal Left knee with mild effusion, ROM 0-100 degrees actively, no erythema Minimal tenderness to palpation over lateral joint line Psychiatric A+Ox3, euthymic affect Discharge Plan Discharge Items Patient Disposition: Home - Home Health Services Reason For Visit: SUSPECTED HEMARTHROSIS LEFT KNEE Discharge Diagnosis: Left knee hemarthrosis Condition on Discharge: Fair Activity: As commented below Lifting: Gradually increase as tolerated Bathing: No limitations Exercise/Sports: Gradually increase as tolerated Exercise Comment: With PT/OT Driving/Machine Use: No driving until cleared by your doctor Weightbearing: Left weightbearing Weightbearing Comment: As tolerated with walker Non-emergency contact: Primary Care Provider and Surgeon Call non-emergency contact if: you have any medication questions, your symptoms worsen and your pain is not controlled Follow-up/Referrals: Musa Guthrie MD [Primary Care Provider] - (Follow-up within 1-2 weeks) Rafy Daley MD [Physician] - (Follow-up within 2 weeks) Diet: Regular Addtl Attending Provider Instructions: You are admitted with an accumulation of blood in your left knee which was drained by orthopedic surgery. This likely happened as a result of a small trauma, but because you are on a blood thinner, the blood rapidly accumulated. Your Eliquis is on hold and you should remain off of it until after further discussion with both orthopedic surgery and your wood heel attacher, Dr. Arcos, about when it is safe to resume Eliquis. It was a pleasure taking care of you! If you have any questions about your care before your hospital follow-up visit with your primary care provider, please call [phone] and ask to be transferred to the [facility] Medicine office. Sincerely, Khadijah Rivers M.D. Addtl [employer] Manager Provider Instructions: Continue compressive wrap on left knee for 24 more hours May ice with easy wrap Follow-up with Dr. Daley's office in 2 weeks. Call for an appointment Weightbearing as tolerated with walker or cane assistance Pending Studies at Discharge: No Stand-Alone Forms: [facility], Smoking Cessation Medications and DC Order Prescriptions: Continued cholecalciferol (vitamin D3) 1,000 unit capsule 1,000 units PO DAILY Patient Comments: 02/04- otc unable to verify Rx Instructions: Patient states she takes as needed calcium carbonate-vitamin D3 [Calcium 500 With D] 500 mg(1,250mg) -400 unit tablet 1 tab PO DAILY Patient Comments: 02/04- otc unable to verify Rx Instructions: Patient states she takes as needed. PreserVision AREDS-2 250-90-40-1 mg capsule 2 cap PO DAILY Patient Comments: 02/04- otc unable to verify metoprolol succinate [Toprol XL] 25 mg tablet extended release 24 hr 25 mg PO DAILY Qty: 90 3RF (DME) Flutter Valve Device See Rx Instructions .MEDSUPPLY Qty: 1 0RF Rx Instructions: Use it every 6 hours when awake. Vitamin B-12 1 tab PO DAILY flecainide 50 mg tablet 50 mg PO BID Rx Instructions: Take 1 tablet by mouth twice daily Held Eliquis 5 mg tablet 5 mg PO BID Qty: 180 3RF Hold Instructions: Resume on 05/20/25. Hold until after discussion with orthopedic surgery and cardiology. Discharge Orders: Discharge Order (Routine); Ordered 05/06/25 Ordered By: Khadijah Rivers Admission Data Admit Date/Time: 05/01/25 17:57 Attending Provider: Khadijah Rivers Admit Provider: Jorge Hinojosa Primary Care Provider: Musa Guthrie Other Providers: Jorge Hinojosa; Stew Martinez; Francie Florian McKenzie; Juanita Linn; Chelsi Fry; Keagan Talbot; Leilani Schwab; Sukhi Jones; Meghan Haney; Dony Swanson; Vivian Serrano; Rafy Daley; Farheen Pappas; Lindsay Magdaleno; Hugh Mcleod; Rod Fleming; Brooklyn Alvarenga; Jenn Melgoza; Chandrika Mims; Priscila Fowler; Chelsea Elder; Stew Dumas; Rod Serrano; Talia Noble; Tere Duran; [facility] Hospital Stay Data Consultations 05/01/25 17:39 ED Decision to Admit Stat 05/01/25 21:06 Consult Orthopedic Surgery Routine Diagnostic Imagining Performed 05/01/25 15:32 US venous duplex leg [US venous doppler LE LT] Stat 05/01/25 21:34 CT knee LT wo con Urgent Pending Results Patient Have Any Pending Studies at Discharge: No Discharge Instructions Given to Patient (Per Discharging Provider) You are admitted with an accumulation of blood in your left knee which was drained by orthopedic surgery. This likely happened as a result of a small trauma, but because you are on a blood thinner, the blood rapidly accumulated. Your Eliquis is on hold and you should remain off of it until after further discussion with both orthopedic surgery and your wood heel attacher, Dr. Arcos, about when it is safe to resume Eliquis. It was a pleasure taking care of you! If you have any questions about your care before your hospital follow-up visit with your primary care provider, please call [phone] and ask to be transferred to the [facility] Medicine office. Sincerely, Khadijah Rivers M.D. Total Time Total Time Spent Total Time Spent (In Minutes): 35 minutes Total Time Includes: Examination of the Patient, Discharge Planning and Medication Reconciliation Coding Level of Care Code 24289 INP/OBS DISCH >30 MIN Diagnoses Knee hemarthrosis, left M25.062 Ambulatory dysfunction R26.2 Paroxysmal A-fib I48.0
[2025-05-06 16:50] VITALS: BP 126/82
== END 2025-05-06 17:29 | disposition home health service (06) | DRG 554 ==
LOC: SUATTDRO → ED 15:23 → SUATTDRO 17:57 → 2W 17:57